=== PATIENT | female | born 1950 | race African-American/Black ===

== ENCOUNTER 2019-05-25 13:40 | Emergency (ER) | payer MEDICARE ==
[~2019-05-25] VITALS: Ht 165.1 cm; Wt 79.4 kg
--- NOTE | 2019-05-25 14:00 | NUR ---
PT BIB FAMILY TO ER BED 10 C/O DIFFUSE ABDOMINAL PAIN W/ NAUSEA SINCE YESTERDAY. PT IS DIALYSIS PATIENT. LAST DIALYSIS YESTERDAY. PT DENIES VOMITING. PLACED ON MONITOR. AWAITING MD MAGAÑA.
--- NOTE | 2019-05-25 14:16 | NUR ---
DR ALCALA AT BEDSIDE FOR EVAL.
[2019-05-25] MEDS ORDERED: ONDANSETRON HCL/PF 4 MG/2 ML VIAL IVP ONE (14:30)
[2019-05-25] MEDS ORDERED: MORPHINE SULFATE INJ 2 MG/ML DISP.SYRIN IV ONE (14:30)
--- NOTE | 2019-05-25 14:35 | NUR ---
IV LINE STARTED BLOOD DRAWN AND SENT TO LAB.
[2019-05-25] MEDS ORDERED: ONDANSETRON HCL/PF 4 MG/2 ML VIAL ONE (14:38)
[2019-05-25] MEDS ORDERED: MORPHINE SULFATE INJ 4 MG/ML DISP.SYRIN ONE (14:38)
[2019-05-25 14:41] LABS: BASOPHILS % (AUTO) 0.5 % (0.0-2.0); EOSINOPHILS % (AUTO) 0.6 % (0.0-6.0); HEMATOCRIT 26 % (33-45); HEMOGLOBIN 8.3 g/dL (11.5-14.8); LYMPHOCYTES # (AUTO) 1.4 /CMM (0.8-4.8); LYMPHOCYTES % (AUTO) 13.8 % (20.0-44.0); MEAN CORPUSCULAR HGB CONC 32 g/dl (31.0-36.0); MEAN CORPUSCULAR VOLUME 96 fL (82-100); MONOCYTES % (AUTO) 9.7 % (2.0-12.0); NEUTROPHILS # (AUTO) 7.6 /CMM (1.8-8.9); NEUTROPHILS % (AUTO) 75.4 % (43.0-81.0); PLATELET COUNT (AUTO) 328 /CMM (150-450); RED BLOOD CELL COUNT(AUTO) 2.72 MIL/uL (4.0-5.2)
[2019-05-25 15:12] LABS: BILIRUBIN,DIRECT 0.3 mg/dL (0.0-0.2); BILIRUBIN,TOTAL 0.6 mg/dL (0.2-1.0); CALCIUM, SERUM 8.4 mg/dL (8.5-10.1); POTASSIUM 4.8 mmol/L (3.5-5.1); TOTAL PROTEIN, SERUM 7.6 g/dL (6.4-8.2)
[2019-05-25 15:13] LABS: CREATININE 8.2 mg/dL (0.6-1.3)
--- NOTE | 2019-05-25 17:01 | NUR ---
Patient discharged to home in stable condition. Written and verbal after care instructions given. Patient verbalizes understanding of instruction.IV removed. Catheter intact and site benign. Pressure and 4x4 applied to site. No bleeding noted.
[2019-05-25 17:02] VITALS: BP 148/58
== END 2019-05-25 17:03 | disposition home or self-care (01) ==
LOC: ER 13:41
DX: K59.00 Constipation, unspecified (principal); R10.13 Epigastric pain; I12.0 Hypertensive chronic kidney disease with stage 5 chronic kidney disease or end stage renal disease; N18.6 End stage renal disease; Z99.2 Dependence on renal dialysis; Z86.73 Personal history of transient ischemic attack (TIA), and cerebral infarction without residual deficits; Z60.2 Problems related to living alone
CPT/HCPCS: 36415; 71045; 74176; 80048; 80076; 83690; 85025; 96374; 96375; 99285; J2270; J2405

== ENCOUNTER 2019-05-27 21:19 | Inpatient (IN) | payer MEDICARE ==
[~2019-05-27] VITALS: Ht 160 cm; Wt 68.9 kg
--- NOTE | 2019-05-27 21:45 | NUR ---
unable to collect urine as pt reported she is not producing any more urine. md polanco aware
[2019-05-27] MEDS ORDERED: ONDANSETRON HCL/PF 4 MG/2 ML VIAL ONE ×2 (21:54→23:19)
[2019-05-27] MEDS ORDERED: MORPHINE SULFATE INJ 2 MG/ML DISP.SYRIN ONE (21:54)
--- NOTE | 2019-05-27 21:57 | NUR ---
PT W/ A SHUNT ON DANIELLE THAT HAS A DRESSING ON AND PER PT IT'S THE SITE THAT IS CURRENTLY USED FOR HD. ALSO W/ A PERNELL SHUNT THAT WAS STABLISHED 2 MOS AGO AND NOT USED YET. PT DENIED ANY HX OF DM. SPOKE TO DR HORNE . PER TO OK START AN IV LINE AND DRAW BLOOD ON THE FEET. A 20G PIV STARTED ON L FOOT . BLOOD DRAWN AND SENT TO THE LAB
[2019-05-27] MEDS ORDERED: ONDANSETRON HCL/PF 4 MG/2 ML VIAL IVP ONE (22:00)
[2019-05-27] MEDS ORDERED: MORPHINE SULFATE INJ 2 MG/ML DISP.SYRIN IV ONE (22:00)
[2019-05-27 22:02] LABS: BASOPHILS % (AUTO) 0.4 % (0.0-2.0); EOSINOPHILS % (AUTO) 5.5 % (0.0-6.0); HEMATOCRIT 24 % (33-45); HEMOGLOBIN 7.6 g/dL (11.5-14.8); LYMPHOCYTES # (AUTO) 0.6 /CMM (0.8-4.8); LYMPHOCYTES % (AUTO) 10.6 % (20.0-44.0); MEAN CORPUSCULAR HGB CONC 32 g/dl (31.0-36.0); MEAN CORPUSCULAR VOLUME 95 fL (82-100); MONOCYTES # (AUTO) 0.5 /CMM (0.1-1.30); NEUTROPHILS # (AUTO) 3.9 /CMM (1.8-8.9); NEUTROPHILS % (AUTO) 74.5 % (43.0-81.0); PLATELET COUNT (AUTO) 302 /CMM (150-450); RED BLOOD CELL COUNT(AUTO) 2.54 MIL/uL (4.0-5.2); WHITE BLOOD COUNT (AUTO) 5.2 K/uL (4.3-11.0)
--- NOTE | 2019-05-27 22:09 | NUR ---
dr. mancia at the bed side
--- NOTE | 2019-05-27 22:11 | NUR ---
pt left fo ct
[2019-05-27 22:13] LABS: ALBUMIN 1.8 g/dL (3.4-5.0); BILIRUBIN,DIRECT 0.4 mg/dL (0.0-0.2); BILIRUBIN,TOTAL 0.7 mg/dL (0.2-1.0); POTASSIUM 4.6 mmol/L (3.5-5.1); TOTAL PROTEIN, SERUM 7.3 g/dL (6.4-8.2)
--- NOTE | 2019-05-27 22:42 | NUR ---
harper, the niece, does not have the list of home meds at this time. she will provide us w/ the list later
[2019-05-27] MEDS ORDERED: ONDANSETRON HCL/PF - ER 4 MG/2 ML VIAL IV ONE (23:30)
[2019-05-28] VITALS (7 sets, daily range): BP systolic 101–156; BP diastolic 43–69
[2019-05-28] MEDS ORDERED: HYDROCODONE/APAP 5/325MG 1 EACH TABLET PO PRN
[2019-05-28] MEDS ORDERED: MAGNESIUM HYDROXIDE 30 ML UDC PO PRN
[2019-05-28] MEDS ORDERED: ZOLPIDEM TARTRATE 5 MG TABLET PO PRN
[2019-05-28] MEDS ORDERED: MAG HYDROX/AL HYDROX/SIMETH 30 ML UDC PO PRN
--- NOTE | 2019-05-28 00:05 | NUR ---
NG TUBE WAS INSERTED AT THE BED SIDE W/ GASTRIC JUICE RETURN. PLACEMENT CONFIRMED W/ RNs. PT TOLERATED THE PROCEDURE WELL.
--- NOTE | 2019-05-28 00:09 | NUR ---
dr. Jenkins hospitalist at the bed side
--- NOTE | 2019-05-28 00:21 | NUR ---
x. ray at the bed side
[2019-05-28] MEDS ORDERED: METOCLOPRAMIDE HCL 15 MG in IV NS 0.9% 50 ML IV PRN (00:30)
--- NOTE | 2019-05-28 00:33 | NUR ---
REPORT GIVEN TO PATY ON THIRD FLOOR
--- NOTE | 2019-05-28 01:05 | NUR ---
MS RN NOTES RECEIVED PATIENT ON FLOOR AT 0105. PATIENT IS ASLEEP, EASILY AWAKEN. WITH NIECE AT BEDSIDE. ALERT AND ORIENTED X 2-3. BREATHING EVEN AND UNLABORED ON 2L NC. SHOWS NO SIGNS OF ACUTE RESPIRATORY DISTRESS, NO ACUTE PAIN. IV ON L FOOT 20G IS CLEAN DRY AND INTACT. SHOWS NO SIGNS OF INFILTRATION, NO REDNESS. HD CATH ON L UPPER ARM SHUNT, AND NEW R UPPER ARM SHUNT THAT HAS NOT BEEN USED. SKIN ASSESSMENT COMPLETED AND BELONGINGS CHECKLIST COMPLETED. ORIENTED TO STAFF AND ROOM. SAFETY PRECAUTIONS IN PLACE. BED IN LOWEST POSITION, LOCKED, AND CALL LIGHT KEPT WITHIN REACH. WILL CONTINUE TO MONITOR.
[2019-05-28 04:55] LABS: BASOPHILS % (AUTO) 0.6 % (0.0-2.0); EOSINOPHILS % (AUTO) 4.4 % (0.0-6.0); HEMATOCRIT 23 % (33-45); HEMOGLOBIN 7.3 g/dL (11.5-14.8); LYMPHOCYTES # (AUTO) 0.6 /CMM (0.8-4.8); LYMPHOCYTES % (AUTO) 13.1 % (20.0-44.0); MEAN CORPUSCULAR HGB CONC 32 g/dl (31.0-36.0); MEAN CORPUSCULAR VOLUME 95 fL (82-100); MONOCYTES # (AUTO) 0.6 /CMM (0.1-1.30); MONOCYTES % (AUTO) 12.1 % (2.0-12.0); NEUTROPHILS # (AUTO) 3.5 /CMM (1.8-8.9); NEUTROPHILS % (AUTO) 69.8 % (43.0-81.0); PLATELET COUNT (AUTO) 297 /CMM (150-450); RED BLOOD CELL COUNT(AUTO) 2.43 MIL/uL (4.0-5.2)
[2019-05-28 05:12] LABS: CALCIUM, SERUM 7.6 mg/dL (8.5-10.1); MAGNESIUM 2.1 mg/dL (1.8-2.4); PHOSPHORUS 4.2 mg/dL (2.5-4.9); POTASSIUM 4.5 mmol/L (3.5-5.1)
[2019-05-28 05:16] LABS: CREATININE 8.5 mg/dL (0.6-1.3)
[2019-05-28 05:21] LABS: THYROID STIMULATING HORMONE 9.356 uIU/mL (0.358-3.74)
[2019-05-28] MEDS ORDERED: NS 0.9% IV PRN (06:30)
[2019-05-28] MEDS ORDERED: METOCLOPRAMIDE HCL IV PRN (06:30)
--- NOTE | 2019-05-28 06:37 | NUR ---
MS RN NOTES PATIENT IS ASLEEP, EASILY AWAKEN. WITH NIECE AT BEDSIDE. ALERT AND ORIENTED X 2-3. BREATHING EVEN AND UNLABORED ON 2L NC. SHOWS NO SIGNS OF ACUTE RESPIRATORY DISTRESS, NO ACUTE PAIN. IV ON L FOOT 20G IS CLEAN DRY AND INTACT. SHOWS NO SIGNS OF INFILTRATION, NO REDNESS. HD CATH ON L UPPER ARM SHUNT, AND NEW R UPPER ARM SHUNT THAT HAS NOT BEEN USED. NG TUBE IN RIGHT NARES ON LOW INTERMITTENT SUCTIONS, DRAINING GREEN FLUIDS, 500MLL DRAINED. ALL DUE MEDICATIONS GIVEN. SAFETY PRECAUTIONS IN PLACE. BED IN LOWEST POSITION, LOCKED, AND CALL LIGHT KEPT WITHIN REACH. WILL ENDORSE TO ONCOMING NURSE.
--- NOTE | 2019-05-28 07:30 | NUR ---
MS/RN Opening note Patient received in bed, AO x 2-3, no appears pain or discomfort. Respiration and unlabored with N/C at 2LPM. Skin is warm to touch, keep clean/dry, intact IV site in right foot. Kept lower position of bed with elevated HOB and bed alarm on for safety. Call light within reach, all needs met. Will endorse heel shaver.
[2019-05-28] MEDS ORDERED: METOCLOPRAMIDE HCL 10 MG/2 ML VIAL IV PRN (08:30)
[2019-05-28] MEDS: PANTOPRAZOLE 40 MG VIAL IV SCH (09:44)
[2019-05-28] MEDS ORDERED: IV NS 0.9% 1,000 ML IV PRN (13:00)
[2019-05-28] MEDS ORDERED: MINERAL OIL 133 ML (PYXIS) 1 EA ENEMA RC ONE (13:00)
[2019-05-28] MEDS: MORPHINE SULFATE INJ 2 MG/ML DISP.SYRIN IV PRN ×2 (14:19→21:42)
--- NOTE | 2019-05-28 18:30 | NUR ---
MS/RN Closing note Patient in bed comfortably, staring hemodialysis, no appears pain or discomfort. Respiration and unlabored, no sob or distress observed. Skin is warm to touch, keep clean/dry, intact new IV site. Kept lower position, patient refused elevate of HOB. Kept NG tube on for N/V, 500 cc out- put. Call light within reach, all needs met. Will endorse machinist 2nd shift.
--- NOTE | 2019-05-28 19:15 | NUR ---
PODIATRIC FOOT AND ANKLE SPECIALIST RCD PT S/P ARREST. PT IS AWAKE DOES NOT FOLLOW COMMANDS. ST ON MONITOR. INTUBATED 7.5 @ 23 W/VENT SETTINGS AC 14 450 40% +5. R NARE NG TUBE CLAMPED PER DAY SHIFT NO OUTPUT NOTED. HD IN PROGRESS.
--- NOTE | 2019-05-28 19:45 | NUR ---
MS RN OPENING NOTES RECEIVED PATIENT FROM MORNING SHIFT, ALERT AND ORIENTED X 2-3. FAMILY ON BEDSIDE. ON-GOING DIALYSIS. VERBALLY RESPONSIVE AND ABLE TO FOLLOW DIRECTIONS. BREATHING REGULAR AND UNLABORED ON OXYGEN AT 4L/MIN VIA NASAL CANNULA. LEFT FOOT G20 IV LINE INTACT AND PATENT, INFUSING WELL WITH NO BLEEDING OR S/S OF INFILTRATION NOTED. NG TUBE PATENT CONNECTED TO CONTINUOS SUCTION WITH MODERATE BLACKISH OUTPUT. COMPLAINED OF 3/10 GENERALIZED PAIN, NON-PHARMACOLOGICAL INTERVENTIONS PROVIDED. BED LOW AND LOCKED ON SEMI FOWLERS POSITION. CALL LIGHT IN REACH. WILL CONTINUE TO MONITOR.
--- NOTE | 2019-05-28 21:45 | NUR ---
MS RN NOTES S/P HEMODIALYSIS WITH NO OUTPUT. BP 150/69 HR 96 RR 20 Temp 98. WILL CONTINUE TO MONITOR.
--- NOTE | 2019-05-28 22:00 | NUR ---
MS RN NOTES COMPLAINED OF 8/10 ABDOMINAL PAIN, MORPHINE 4MG GIVEN VIA IV PUSH. NON-PHARMACOLOGICAL INTERVENTIONS PROVIDED. VITAL SIGNS WNL. WILL CONTINUE TO MONITOR.
[2019-05-29] MEDS: IV D5/ 0.9% NACL 1,000 ML IV PRN ×2 (03:39→19:37)
[2019-05-29 06:18] LABS: BASOPHILS % (AUTO) 0.5 % (0.0-2.0); EOSINOPHILS % (AUTO) 3.6 % (0.0-6.0); HEMATOCRIT 26 % (33-45); HEMOGLOBIN 8.3 g/dL (11.5-14.8); LYMPHOCYTES # (AUTO) 1.1 /CMM (0.8-4.8); LYMPHOCYTES % (AUTO) 16.2 % (20.0-44.0); MEAN CORPUSCULAR HGB CONC 32 g/dl (31.0-36.0); MEAN CORPUSCULAR VOLUME 95 fL (82-100); MONOCYTES % (AUTO) 14.3 % (2.0-12.0); NEUTROPHILS # (AUTO) 4.6 /CMM (1.8-8.9); NEUTROPHILS % (AUTO) 65.4 % (43.0-81.0); PLATELET COUNT (AUTO) 339 /CMM (150-450); RED BLOOD CELL COUNT(AUTO) 2.75 MIL/uL (4.0-5.2)
--- NOTE | 2019-05-29 06:30 | NUR ---
MS RN CLOSING NOTES PATIENT IN BED ALERT AND ORIENTED X 2-3. FAMILY ON BEDSIDE. VERBALLY RESPONSIVE AND ABLE TO FOLLOW DIRECTIONS. BREATHING REGULAR AND UNLABORED ON OXYGEN AT 4L/MIN VIA NASAL CANNULA. LEFT FOOT G20 IV LINE PATENT AND INFUSING WELL. NG TUBE PATENT CONNECTED TO CONTINUOS SUCTION WITH 80CC OUTPUT. NO BLEEDING NOTED LEFT ARM AV FISTULA. NO COMPLAINTS OF PAIN/DISCOMFORT REPORTED AT THIS TIME. BED LOW AND LOCKED ON SEMI FOWLERS POSITION. CALL LIGHT IN REACH. WILL ENDORSE TO MORNING SHIFT FOR DANNA.
[2019-05-29 06:33] LABS: CALCIUM, SERUM 8.8 mg/dL (8.5-10.1); CREATININE 6.3 mg/dL (0.6-1.3); MAGNESIUM 2.3 mg/dL (1.8-2.4); PHOSPHORUS 3.4 mg/dL (2.5-4.9); POTASSIUM 4.3 mmol/L (3.5-5.1)
--- NOTE | 2019-05-29 07:20 | NUR ---
RN OPENING NOTES RECEIVED PATIENT IN BED RESTING. NOT IN ANY FORM OF DISTRESS, NO SOB. DENIED PAIN OR DISCOMFORT AT THIS TIME. IV ACCESS INTACT AND PATENT. NG TUBE ON RIGHT NARES IN PLACE, ON INTERMITTENT SUCTION. KEPT PATIENT SAFE AND COMFORTABLE, BED IN LOW/LOCKED POSITION, SIDERAILS UP X 2, CALL LIGHT IN REACH. WILL CONT TO MONITOR ACCORDINGLY.
[2019-05-29 08:00] VITALS: BP 143/68
[2019-05-29] MEDS: MORPHINE SULFATE INJ 2 MG/ML DISP.SYRIN IV PRN ×2 (08:38→23:17)
[2019-05-29] MEDS: PANTOPRAZOLE 40 MG VIAL IV SCH (08:38)
[2019-05-29] MEDS ORDERED: DIATR MEGLU/DIATRIZOATE SODIUM 120 ML BOTTLE (GASTROGRAPHIN) ONE (09:21)
[2019-05-29] MEDS ORDERED: NA PHOS,M-B/NA PHOS,DI-BA 1 EA ENEMA RC PRN (10:30)
[2019-05-29] MEDS ORDERED: CLON0.5T4 PO (14:18)
[2019-05-29] MEDS ORDERED: ERGO50CA PO (14:18)
[2019-05-29] MEDS ORDERED: FOLI0.8T2 PO (14:18)
[2019-05-29] MEDS ORDERED: CINA30TA2 PO (14:18)
[2019-05-29] MEDS ORDERED: DOCU-141 PO (14:18)
[2019-05-29] MEDS ORDERED: CLON0.1T PO (14:18)
[2019-05-29] MEDS ORDERED: ISOS10TA8 PO (14:18)
[2019-05-29] MEDS ORDERED: OXYC5TAB3 PO (14:18)
[2019-05-29] MEDS ORDERED: HYDR-3972 PO (14:18)
[2019-05-29 16:00] VITALS: BP 117/69
--- NOTE | 2019-05-29 19:00 | NUR ---
MS RN NOTE RECEIVED PT IN STABLE CONDITION A/O X2-3 NOTED WITH FAMILY AND DIALYSIS NURSE AT BEDSIDE. NO SIGNS OF SOB OR DISTRESS. NO INDICATION OF PAIN OR N/V. NG TUBE IN PLACE, RECEIVING SMALL BOWEL THROUGH, WILL RESUME INTERMITTENT SUCTIONING IN AM. IV IN L FOOT #[address] WITH IVF INFUSING. ALL CURRENT NEEDS ATTENDED TO. BED LOW, LOCKED, UPPER RAILS UP, AND CALL LIGHT WITHIN REACH. WILL CONT. TO MONITOR.
--- NOTE | 2019-05-29 19:00 | NUR ---
RN CLOSING NOTES PATIENT IN STABLE CONDITION. ALL NEEDS ATTENDED AND PROVIDED. ALL DUE MEDS GIVEN ORDERED. TURNED AND REPOSITIONED PATIENT. KEPT PATIENT SAFE AND COMFORTABLE. BED IN LOW/LOCKED POSITION. SIDERAILS UPX2, CALL LIGHT IN REACH. ENDORSED ACCORDINGLY.
[2019-05-29 20:00] VITALS: BP 143/89
[2019-05-29] MEDS: MUPIROCIN OINT 2% 22 GM TUBE SCH (21:32)
[2019-05-30] VITALS (22 sets, daily range): BP systolic 65–238; BP diastolic 38–118
--- NOTE | 2019-05-30 06:15 | NUR ---
MS RN NOTE LAST XRAY DONE FOR SMALL BOWEL FOLLOW THROUGH. PER RADIOLOGY, PHOTO IS CLEAR AND MAY RESTART LOW INTERMITTENT SUCTIONING. PT STARTED ON LOW INTERMITTENT SUCTIONING, TOLERATING WELL.
--- NOTE | 2019-05-30 07:30 | NUR ---
MS RN OPENING NOTE PATIENT IN BED RESTING COMFORTABLY. PATIENT IN NO ACUTE DISTRESS. NO SOB NOTED. PATIENT BREATHING IS EVEN AND UNLABORED. NG TUBE PATENT AND IN PLACE, WITH INTERMITTENT SUCTION. PATIENT SAFETY PRECAUTIONS IN PLACE. BED ALARM IS ON. PATIENT BED IS LOCKED AND IN LOWEST POSITION. CALL LIGHT WITHIN REACH. WILL CONTINUE TO MONITOR. Addendum: 05/30/19 at 1139 by ANA COURTNEY RN MS RN OPENING NOTE PATIENT IN BED RESTING COMFORTABLY. PATIENT IN NO ACUTE DISTRESS. NO SOB NOTED. PATIENT BREATHING IS EVEN AND UNLABORED. PATIENT BREATHING ON OXYGEN NC AT 4L. NG TUBE PATENT AND IN PLACE, WITH INTERMITTENT SUCTION. PATIENT SAFETY PRECAUTIONS IN PLACE. BED ALARM IS ON. PATIENT BED IS LOCKED AND IN LOWEST POSITION. CALL LIGHT WITHIN REACH. WILL CONTINUE TO MONITOR.
[2019-05-30 07:39] LABS: BASOPHILS % (AUTO) 0.6 % (0.0-2.0); EOSINOPHILS % (AUTO) 2.8 % (0.0-6.0); HEMATOCRIT 26 % (33-45); HEMOGLOBIN 7.9 g/dL (11.5-14.8); LYMPHOCYTES # (AUTO) 0.6 /CMM (0.8-4.8); LYMPHOCYTES % (AUTO) 11.1 % (20.0-44.0); MEAN CORPUSCULAR HGB CONC 30 g/dl (31.0-36.0); MEAN CORPUSCULAR VOLUME 97 fL (82-100); MONOCYTES # (AUTO) 0.7 /CMM (0.1-1.30); MONOCYTES % (AUTO) 13.7 % (2.0-12.0); NEUTROPHILS # (AUTO) 3.8 /CMM (1.8-8.9); NEUTROPHILS % (AUTO) 71.8 % (43.0-81.0); PLATELET COUNT (AUTO) 302 /CMM (150-450); RED BLOOD CELL COUNT(AUTO) 2.71 MIL/uL (4.0-5.2); WHITE BLOOD COUNT (AUTO) 5.2 K/uL (4.3-11.0)
[2019-05-30 08:23] LABS: CALCIUM, SERUM 8.7 mg/dL (8.5-10.1); CREATININE 5.5 mg/dL (0.6-1.3); MAGNESIUM 2.4 mg/dL (1.8-2.4); POTASSIUM 4.3 mmol/L (3.5-5.1)
[2019-05-30 08:25] LABS: PHOSPHORUS 3.9 mg/dL (2.5-4.9)
--- NOTE | 2019-05-30 08:25 | NUR ---
MS RN NOTE PATIENT COMES FROM HOME.PATIENT IS ALERT AND ORIENTED X3 TO PLACE AND PERSON. CHIEF COMPLAIN WAS N/V AND CONSTIPATION. DIAGONOSIS IS SMALL BOWEL OBSTRUCTION. WITH HISTORY OF ESRD, HD, CVA, HTN, AND DM. 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 PATIENT HAS BEEN NPO STATUS SINCE ADMISSION. PATIENT WITH NG TUBE PLACEMENT INTACT AND SWISH PRESENT UPON AUSCULTATION BY PRINCIPAL DATABASE DEVELOPER AND DAY SHIFT NURSES. NG TUBE INTERMITTENT SUCTIONING PAUSED BEFORE SMALL BOWEL THROUGH FOLLOW UP. PATIENT UNDER WENT SMALL BOWEL FOLLOW THROUGH LAST NIGHT WITH LAST IMAGE TAKEN AT 0600. AFTER SMALL BOWEL THROUGH COMPLETE, PATIENT BACK ON NG TUBE LOW TO INTERMITTENT SUCTION AND TOLERATED WELL.PATIENT WAS VERBALLY RESPONSIVE DURING RN SHIFT REPORT.VITAL SIGNS STABLE AT 0735. PATIENT BREATHING WAS EVEN AND UNLABORED AND PATIENT WAS RESPONSIVE TO VERBAL RESPONSE AND TOUCH. PATIENT IN NO ACUTE DISTRESS AT 0740, NO SOB NOTED. PATIENT BREATHING WAS EVEN AND UNLABORED. FAMILY STATED CARD LACER MOVED HER ARM FROM BEING OFFLOADED ON PILLOWS AND EXPERIENCING SOME PAIN AND PATIENT HAD EXPERIENCED ABDOMINAL PAIN. NOTED THROUGHOUT HOSPITALIZATION OF ABDOMINAL PAIN WELL. WHEN CHECKING HER MEDICATION RECONCILATION AND WHAT PAIN MEDS WERE GIVE, IT WAS AT 0755 PATIENT FAMILY STATED PATIENT WITH LABORED BREATHING. PATIENT BECAME UNRESPONSIVE WITH SPO2 IN 50-55% RANGE. HR WAS 52. RAPID RESPONSE WAS INITIATED. CPR INITIATED AT 0808, CODE BLUE CALLED AT THIS TIME. PATIENT GIVEN EPI [id number]. PULSE CAME BACK AT 0813. PATIENT INTUBATED 0816. PATIENT THEN TRANSFERRED TO ICU FOR FURTHER CARE AT 0825.
--- NOTE | 2019-05-30 08:30 | NUR ---
RT NOTE Responded to RR which turned into Code Blue. Pt was unresponsive, ACLS protocol stated and patient orally intubated w 7.5 Ett @ 23cm @ lipline. Pt then transferred to ICU.
--- NOTE | 2019-05-30 08:40 | NUR ---
PHYSICAL THERAPY INSTRUCTOR NOTES TRANSFERRED PT S/P CODE BLUE AT MS , PT INTUBATED 7.08/[address] ON MECHANICAL VENT WITH INITIAL SETTINGS OF RATE 14 TV 450 FIO2 100 PEEP OF 92% , NON RESPONSIVE , PULSES ARE PALPABLE , ST 120 ON BEDSIDE MONITOR , IV OF L FOOT # 20 WITH D5NS @ 75ML/HR INFUSING WELL , RIGHT NGT IN PLACE ATTACHED TO LOW INTERMITTENT SUCTION DRAINING WITG GREENISH OUTPUT , DEMITRY AT BEDSIDE , ORDERED CBC , BMP , MAG , PHOS , CENTRAL LINE INSERTION , AND DIPRIVAN INFUSION , ORDERS CARRIED OUT , PENDING CHEST XRAY RESULT FOR ETT PLACEMENT
--- NOTE | 2019-05-30 08:45 | NUR ---
MICA BUILDER NOTES SEEN AND EVALUATED BY DR MERRITT , DISCUSSED EVENTS S/P CODE BLUE , INTUBATED ON VENT SETTINGS OF AC 14 TV 450 FIO2 100% AND PEEP OF 5 , SPO2 OF 92% ,PENDING CHEST XRAY RESULT , MD AWARE , PER MD DO ABG AFTER TWO HOURS
[2019-05-30 08:48] LABS: ABG BASE EXCESS -2.4 mmol/L; ABG OXYGEN SATURATION 99.2 % (92.0-98.5); ABG PO2 422.4 mmHg (75.0-100.0); AaDO2 240.6 mmHg; COHb 1.1 % (0.5-1.5); MetHb 0.5 % (0.0-1.5); O2Hb 97.6 % (94.0-97.0); PEEP,BG 5 cm H2O; SITE, ABG Right Radial; VT, ABG 450 mL
[2019-05-30] MEDS: MUPIROCIN OINT 2% 22 GM TUBE SCH ×2 (09:00→22:08)
--- NOTE | 2019-05-30 09:00 | NUR ---
RESTAURANT GREETER NOTES SEEN AND EVALUATED BY DR HEAD DISCUSSED LATEST LABS S/P CODE BLUE , DISCUSSED EVENS , INTUBATED ON MECHANICAL VENT , NO SEDATION , VS STABLE , TEMP OF 99.9 , MD AWARE , PER MD MONITOR LABS TOMORROW
[2019-05-30 09:26] LABS: BASOPHILS % (AUTO) 0.6 % (0.0-2.0); EOSINOPHILS % (AUTO) 2.3 % (0.0-6.0); HEMATOCRIT 26 % (33-45); HEMOGLOBIN 7.7 g/dL (11.5-14.8); LYMPHOCYTES # (AUTO) 0.9 /CMM (0.8-4.8); LYMPHOCYTES % (AUTO) 17.6 % (20.0-44.0); MEAN CORPUSCULAR HGB CONC 30 g/dl (31.0-36.0); MEAN CORPUSCULAR VOLUME 99 fL (82-100); MONOCYTES # (AUTO) 0.6 /CMM (0.1-1.30); MONOCYTES % (AUTO) 13.1 % (2.0-12.0); NEUTROPHILS # (AUTO) 3.3 /CMM (1.8-8.9); NEUTROPHILS % (AUTO) 66.4 % (43.0-81.0); PLATELET COUNT (AUTO) 293 /CMM (150-450); RED BLOOD CELL COUNT(AUTO) 2.59 MIL/uL (4.0-5.2); WHITE BLOOD COUNT (AUTO) 4.9 K/uL (4.3-11.0)
--- NOTE | 2019-05-30 09:36 | NUR ---
RT VT INCREASED TO 500 PER MD ORDER. ABG 2 HOURS AFTER VENT CHANGES. MEHREEN WADE NOTIFIED AND AWARE OF CHANGES. Addendum: 05/30/19 at 1841 by LIDA GALAVIZ RT Amended: Links added.
[2019-05-30 09:37] LABS: CALCIUM, SERUM 8.5 mg/dL (8.5-10.1); CREATININE 5.8 mg/dL (0.6-1.3); MAGNESIUM 2.2 mg/dL (1.8-2.4); PHOSPHORUS 4.5 mg/dL (2.5-4.9); POTASSIUM 4.2 mmol/L (3.5-5.1)
[2019-05-30] MEDS: PANTOPRAZOLE 40 MG VIAL IV SCH (10:25)
[2019-05-30] MEDS ORDERED: PIPERACILLIN /TAZOBACTAM 3.375 G in IV D5W 50 ML IV SCH (10:30)
--- NOTE | 2019-05-30 10:50 | NUR ---
WOUND CARE: PT NOT SEEN YET FOR SKIN ASSESSMENT DUE TO PT NOT STABLE (CODE BLUE THIS AM). WILL SEE PT PT CONDITION PERMITS.
[2019-05-30] MEDS ORDERED: ZOSYN IVPB 2.25 G in IV D5W 50ml IV SCH (10:57)
[2019-05-30] MEDS ORDERED: CLINDAMYCIN 600 MG in IV D5W 50 ML IV SCH (11:11)
[2019-05-30] MEDS: PROPOFOL 100 ML IV PRN ×2 (11:28→19:03)
[2019-05-30] MEDS: IV D5/ 0.9% NACL 1,000 ML IV PRN (11:49)
--- NOTE | 2019-05-30 12:00 | NUR ---
WEB SERVICES PROFESSIONAL NOTES MAREK VISUAL SPECIALIST AT BEDSIDE , DISCUSSED EVENTS S/P CODE BLUE , PT INTUBATED , SEDATED , ON LOW INTERMITTENT SUCTION DRAINING WITH MINIMAL GREENISH SECRETIONS , DISCUSSED RESULTS OF SMALL BOWEL FOLLOW THRU , PER VISUAL SPECIALIST CONTINUE NGT TO LOW ICS , IF NO BM GIVE ENEMA , WILL CONTINUE TO MONITOR
[2019-05-30 12:36] LABS: ABG BASE EXCESS 2.6 mmol/L; ABG OXYGEN SATURATION 99.1 % (92.0-98.5); ABG PCO2 38.2 mmHg (35.0-45.0); ABG PO2 383.4 mmHg (75.0-100.0); AaDO2 146.9 mmHg; COHb 1.3 % (0.5-1.5); MetHb 0.5 % (0.0-1.5); O2Hb 97.3 % (94.0-97.0); PEEP,BG 5 cm H2O; SITE, ABG Right Femoral; VT, ABG 500 mL
--- NOTE | 2019-05-30 12:41 | NUR ---
PITTING MACHINE OPERATOR NOTES ABG RELAYED TO DR MERRITT , DISCUSSED RESULT AND VENT SETTINGS, FIO2 TITRATED TO 40% , WILL CONTINUE TO MONITOR
--- NOTE | 2019-05-30 13:59 | NUR ---
WOMEN DESIGNER NOTES RECEIVED A CALL FROM MAREK HADDAD , ORDERS ABDOMINAL KUV , DISCUSSED WAS KUV WAS DONE TODAY FOR LINE PLACEMENT , PENDING RESULT WORKPLACE TRAINER AND ASSESSOR AWARE
[2019-05-30] MEDS: hydrALAZINE HCL IV 20 MG VIAL IV PRN (14:40)
--- NOTE | 2019-05-30 14:45 | NUR ---
HOT BOX SPOTTER NOTES RELAYED ABDOMINAL KUV RESULT TO MAREK HADDAD , OUTPATIENT PROGRAM COORDINATOR AWARE , NO NEW ORDERS RECEIVED
--- NOTE | 2019-05-30 15:00 | NUR ---
BRAND MANAGER NOTES TRANSFERRED PT VIA ACLS PROTOCOL TO RADIOLOGY DEPT FOR STAT HEAD CT , PT STABLE , NO DISTRESS NOTED , WILL CONTINUE TO MONITOR
[2019-05-30] MEDS: MEROPENEM 500 MG in IV NS 0.9% 50 ML IV SCH (16:25)
--- NOTE | 2019-05-30 16:43 | NUR ---
FIELD AUTOMOBILE ADJUSTER NOTES PT NOTED WITH SMEAR STOOL UPON CLEANING , SOFT BROWN STOOL MINIMAL IN AMOUNT
[2019-05-30] MEDS: LINEZOLID RTU BAG 600 MG in PREMIX 1 EA IV SCH (17:03)
--- NOTE | 2019-05-30 19:14 | NUR ---
SPEED OPERATOR NOTES PATIENT STABLE , SEDATED , RESPONSIVE TO PAIN STIMULI , INTUBATED 7.08/[address] ON MECHANICAL VENT SETTINGS OF RATE 14 TV 500 FIO2 40 PEEP 5 OF 95% , , ST 105 ON BEDSIDE MONITOR , RIGHT FEMORAL PICC LINE WITH D5NS @ 75ML/HR , DIPRIVAN @ 30MCG/KG/MIN INFUSING WELL , RIGHT NGT IN PLACE ATTACHED TO LOW INTERMITTENT SUCTION DRAINING WITG GREENISH OUTPUT , REPORT GIVEN TO SHANE FOR CONTINUITY OF CARE
--- NOTE | 2019-05-30 19:30 | NUR ---
ACADEMIC HOSPITALIST NOTES, PATIENT IN BED SEDATED, OPEN SPONTANEOUSLY SEMI OPEN AT TIMES, PT INTUBATED 7.08/24 ON MECHANICAL VENT WITH INITIAL SETTINGS OF RATE 14 TV 500 FIO2 40%, PEEP 5 , RIGHT FEMORAL PICC LINE AND D5NS @ 75ML/HR INFUSING WELL, AND DIPRIVAN AT 30MCG AT THIS TIME, RIGHT NGT IN PLACE ATTACHED TO LOW INTERMITTENT SUCTION DRAINING, GREENISH DRAINAGE NOTED WITH MINIMAL AMOUNT AT THIS TIME, WILL CONTINUE TO MONITOR CLOSELY.
--- NOTE | 2019-05-30 19:31 | NUR ---
FACILITY SECURITY OFFICER NOTES FAXED REQUEST FOR MEDICAL RECORD @ [facility] [phone] ,
--- NOTE | 2019-05-30 21:49 | NUR ---
RT NOTE PT RECEIVED INTUBATED WITH ET TUBE SZ 7.5 @ 23 CM RIGHT LIP LINE. CUFF CHECKED VIA TOUCH UP WORKER. ET TUBE SECURED VIA ANCHOR FAST. AMBU BAG @ BEDSIDE. SX DONE, SMALL SECRETIONS NOTED. ALARMS ON AND AUDIBLE. NO DISTRESS NOTED AT THIS TIME. WILL MONITOR T/O SHIFT. Addendum: 05/30/19 at 2150 by OTILIO BLAKE RT Amended: Links added.
[2019-05-30] MEDS ORDERED: ACETAMINOPHEN 650 MG/SUPP.RECT RC PRN (22:00)
--- NOTE | 2019-05-30 22:10 | NUR ---
RN NOTES, PATIENT NOTED WITH TEMP 100.4, CALLED MD SPORTS REPORTER ANDONIAN AND NEW ORDER FOR TYLENOL SUPPOSITORY, ORDER NOTED AND CARRIED OUT.
[2019-05-31] VITALS (39 sets, daily range): BP systolic 109–184; BP diastolic 49–93
[2019-05-31] MEDS: PROPOFOL 100 ML IV PRN (04:01)
[2019-05-31 04:40] LABS: BASOPHILS % (AUTO) 0.5 % (0.0-2.0); EOSINOPHILS % (AUTO) 1.1 % (0.0-6.0); HEMATOCRIT 22 % (33-45); LYMPHOCYTES # (AUTO) 0.5 /CMM (0.8-4.8); LYMPHOCYTES % (AUTO) 9.3 % (20.0-44.0); MEAN CORPUSCULAR HGB CONC 31 g/dl (31.0-36.0); MEAN CORPUSCULAR VOLUME 98 fL (82-100); MONOCYTES # (AUTO) 0.9 /CMM (0.1-1.30); MONOCYTES % (AUTO) 16.3 % (2.0-12.0); NEUTROPHILS # (AUTO) 4.3 /CMM (1.8-8.9); NEUTROPHILS % (AUTO) 72.8 % (43.0-81.0); PLATELET COUNT (AUTO) 251 /CMM (150-450); RED BLOOD CELL COUNT(AUTO) 2.25 MIL/uL (4.0-5.2); WHITE BLOOD COUNT (AUTO) 5.8 K/uL (4.3-11.0)
[2019-05-31 05:02] LABS: CALCIUM, SERUM 7.4 mg/dL (8.5-10.1); CREATININE 6.5 mg/dL (0.6-1.3); MAGNESIUM 2.3 mg/dL (1.8-2.4); PHOSPHORUS 4.1 mg/dL (2.5-4.9); POTASSIUM 4.3 mmol/L (3.5-5.1)
[2019-05-31 05:10] LABS: HEMOGLOBIN 6.7 g/dL (11.5-14.8)
[2019-05-31] MEDS: LINEZOLID RTU BAG 600 MG in PREMIX 1 EA IV SCH ×2 (05:26→16:14)
[2019-05-31] MEDS: IV D5/ 0.9% NACL 1,000 ML IV PRN (05:32)
[2019-05-31 06:35] LABS: LYMPHOCYTES % (MANUAL) 9 % (16-48); MONOCYTES % (MANUAL) 11 % (0-11.0); NEUTROPHILS % (MANUAL) 82 (42-76)
--- NOTE | 2019-05-31 07:00 | NUR ---
LEGAL RECRUITER NOTES, PATIENT CONTINUE ON MECHANICAL VENT WITH SAME SETTINGS OF RATE 14 TV 500 FIO2 40%, PEEP 5 , NO DISTRESS NOTED OVER NIGHT, SINUS TACHY MOSTLY IN TELE MONITOR, RIGHT FEMORAL PICC LINE AND D5NS @ 75ML/HR INFUSING WELL, AND DIPRIVAN AT 30MCG AT THIS TIME, RIGHT NGT IN PLACE ATTACHED TO LOW INTERMITTENT SUCTION DRAINING, MINIMAL OUTPUT LAST DURING NIGHT, ONE VERY SMALL BOWEL MOVEMENT, NO SIGNIFICANT CHANGE IN CONDITION DURING THE NIGHT, THIS MORNING REPORTED BY LAB LOW H&H AND INFORMED ANDONIAN LOGISTICS MANAGEMENT SPECIALIST, HE REPLIED WITH ORDER FOR ONE UNIT PRBC AND REPEAT H&H AT 0700 THIS MORNING BEFORE THE TRANSFUSION IF HEMOGLOBIN <7 TRANSFUSE ENDORSED TO SHERI ROSADO FOR CONTINUATION OF CARE.
--- NOTE | 2019-05-31 07:00 | NUR ---
RN NOTES RECEIVED PT ON BED , SEDATED, AND INTUBATED ,ON DIPRIVAN AT 30MCG/KG/MIN, 7.08/24 ON MECHANICAL VENT WITH INITIAL SETTINGS OF RATE 14 TV 500 FIO2 40%, PEEP 5, VSS STABLE, DOSE NOT FOLLOW COMMAND, , RIGHT FEMORAL PICC LINE WITH D5NS @ 75ML/HR INFUSING WELL, RIGHT NGT IN PLACE ATTACHED TO LOW INTERMITTENT SUCTION DRAINING, WITH MINIMAL AMOUNT OF DRAINING THIS TIME, WILL CONTINUE TO MONITOR CLOSELY AND NOTIFED DM FOR ANY SIGNIFICANT CHANGES.
--- NOTE | 2019-05-31 07:20 | NUR ---
WOUND CARE CONSULT PATIENT SEEN AND SKIN ASSESSMENT DONE. PLEASE SEE PEN TENDER ASSESSMENT IN PCS FOR TODAY. PATIENT WITH ABDIRIZAK AT 11, 1ST STEP LOW AIRLOSS MATTRESS ON ORDER. PATIENT PRESENTS WITH STAGE 3 SACRAL ULCER, AND LEFT UPPER ARM HD ACCESS ALL POA. RECOMMEND SURGICAL CONSULT, DR FERDINAND HEAD NOTIFIED OF WOUND SURGICAL CONSULT HE IS CURRENTLY FOLLOWING FOR GEN SURGERY. ALL PRESSURE ULCER PREVENTION MEASURES ARE NOTED TO BE IN PLACE. Addendum: 05/31/19 at 0723 by ALICIA GRANT Amended: Links added. Addendum: 05/31/19 at 0735 by ALICIA WHITFIELDU ADDENDUM/CLARIFICATION SKIN ASSESSMENT OF STAGE 3 PRESSURE ULCER SHOULD NOT SAY SCABIES, SHOULD SAY FULL THICKNESS SKIN LOSS.
--- NOTE | 2019-05-31 07:26 | NUR ---
RT NOTE PT REC'D INTUBATED WITH ET TUBE SZ 7.5 @ 23 CM RIGHT LIP LINE. CUFF CHECKED VIA CASE LINER. ET TUBE SECURED VIA ANCHOR FAST. AMBU BAG @ BEDSIDE. SX DONE, SMALL SECRETIONS NOTED. ALARMS ON AND AUDIBLE. NO DISTRESS NOTED AT THIS TIME. WILL MONITOR T/O SHIFT. Addendum: 05/31/19 at 0727 by SHANNON MELARA RT Amended: Links added.
[2019-05-31] MEDS ORDERED: HYDROGEL DRESSING 90 GM TUBE TP PRN (07:30)
[2019-05-31] MEDS: PANTOPRAZOLE 40 MG VIAL IV SCH (08:22)
[2019-05-31 08:30] LABS: HEMOGLOBIN 6.8 g/dL (11.5-14.8)
[2019-05-31 08:39] LABS: ABG OXYGEN SATURATION 98.2 % (92.0-98.5); ABG PCO2 33.6 mmHg (35.0-45.0); ABG PH 7.479 (7.350-7.450); ABG PO2 154.6 mmHg (75.0-100.0); MetHb 0.3 % (0.0-1.5); O2Hb 96.9 % (94.0-97.0); PEEP,BG 5 cm H2O; SITE, ABG Left Femoral; VT, ABG 500 mL
[2019-05-31] MEDS: MUPIROCIN OINT 2% 22 GM TUBE SCH ×2 (09:04→21:55)
[2019-05-31] MEDS: HYDROGEL DRESSING 90 GM TUBE TP SCH (09:04)
--- NOTE | 2019-05-31 11:49 | NUR ---
RN NOTES BLOOD IS NOT READY PER BLOOD BANK YET .
[2019-05-31] MEDS: ACETAMINOPHEN 325 MG TABLET PO PRN (13:03)
--- NOTE | 2019-05-31 14:35 | NUR ---
RN NOTES LAB NOTIFED REGARDING MICROBIOLOGY RESULT UPDATE PER ID ORDER .
[2019-05-31] MEDS: MEROPENEM 500 MG in IV NS 0.9% 50 ML IV SCH (15:12)
--- NOTE | 2019-05-31 17:00 | NUR ---
RN NOTES PT HAS LARGE, HARD BROWNISH COLOR STOOL .
--- NOTE | 2019-05-31 18:24 | NUR ---
RN NOTES VSS STABLE, PT GETTING EEG AT THIS TIME, OFF SEDATION , DOES NOT FOLLOW COMMAND, TOLERATING TF WELL, PT PLACED ON KCI MATTRESS FOR SKIN AND WOUND PROTECTION, D5NS AT 75CC /HR RUNNING , SR UP x3, CALL LIGHT WITHIN EASY REACH , BED LOCKED AND IN LOWEST POSITION. WILL ENDORSE TO INSIDE TRUCKER NURSE FOR CONTINUITY OF CARE .
--- NOTE | 2019-05-31 19:04 | NUR ---
RN NOTES PT RECEIVING ONE UNIT OF PRBC WITH HD, VSS STABLE .
--- NOTE | 2019-05-31 19:30 | NUR ---
SPACE PHYSICIST RCD PT CURRENTLY RECEIVING HD AND RECEIVING 1 UNIT PRBC BY HD NURSE.
--- NOTE | 2019-05-31 22:00 | NUR ---
JOINT SETTER HD 1800 ML OUTPUT. TOLERATED WELL.
--- NOTE | 2019-05-31 23:39 | NUR ---
PT RCVD ORALLY INTUBATED WITH ET TUBE SZ 7.5 @ 23 CM @ LIP. ET TUBE SECURED VIA ANCHOR FAST. AMBU BAG @ BEDSIDE. SX DONE. VENT ALARMS ARE ON AND AUDIBLE. NO DISTRESS NOTED AT THIS TIME. Addendum: 05/31/19 at 2340 by PETE EGRONIMO RT Amended: Links added. Addendum: 05/31/19 at 2344 by PETE GERONIMO RT VENT PLUGGED INTO RED OUTLET.
[2019-06-01] VITALS (47 sets, daily range): BP systolic 81–220; BP diastolic 45–148
[2019-06-01] MEDS: hydrALAZINE HCL IV 20 MG VIAL IV PRN ×2 (00:09→05:54)
--- NOTE | 2019-06-01 00:09 | NUR ---
PROJECT ANALYST HYDRALAZINE GIVEN FOR ELEVATED SBP CONTINUE TO MONITOR.
[2019-06-01 00:39] LABS: HEMOGLOBIN 8.5 g/dL (11.5-14.8)
[2019-06-01] MEDS: IV D5/ 0.9% NACL 1,000 ML IV PRN (00:45)
[2019-06-01 02:28] LABS: OCCULT BLOOD STOOL POSITIVE (NEGATIVE)
[2019-06-01] MEDS: MORPHINE SULFATE INJ 2 MG/ML DISP.SYRIN IV PRN ×2 (03:59→22:11)
[2019-06-01] MEDS: PROPOFOL 100 ML IV PRN ×3 (04:15→19:39)
[2019-06-01] MEDS: LINEZOLID RTU BAG 600 MG in PREMIX 1 EA IV SCH ×2 (04:15→16:44)
--- NOTE | 2019-06-01 04:15 | NUR ---
TRUCKER HAND PT NOTED TO BE AGITATED NOT FOLLOWING COMMANDS. INITIATED PROPOFOL AT 5 MCG/KG/MIN AT THIS TIME. CONTINUE TO MONITOR.
--- NOTE | 2019-06-01 05:54 | NUR ---
LONGWALL HEADGATE OPERATOR HYDRALAZINE GIVEN FOR ELEVATED SBP CONTINUE TO MONITOR.
--- NOTE | 2019-06-01 06:00 | NUR ---
CERTIFIED PROSTHETIST VICE PRESIDENT PT ADEQUATELY SEDATED AT THIS TIME. CONTINUE TO MONITOR.
--- NOTE | 2019-06-01 07:15 | NUR ---
ICU/RN PT IS INTUBATED ON THE VENT AC MODE,FIO2-40%,SAT O2-100%.V/S STABLE. HR-125 BPM.PT IS AGITATED , OPEN HER YES NOT FOLLOWS COMMAND ,ON DIPRIVAN AT 25 ,DIPRIVAN INCREASED.PT HAS NG TUBE CLAMPED.IV-RIGHT FEMORAL PICC LINE.IV FLUIDS ON. T-101.1.GENERALIZED EDEMA PRESENT.PT IS ANURIC ON HD.LEFT ARM IV SHUNT AND RIGHT UPPER ARM SHUNT.WOUND ON THE LOWER BACK NOTED ,COVERED WITH MEPILEX.SUCTION PROVIDED.REPOSITION FOR COMFORT.
[2019-06-01] MEDS: PANTOPRAZOLE 40 MG VIAL IV SCH (08:28)
[2019-06-01] MEDS: HYDROGEL DRESSING 90 GM TUBE TP SCH (08:29)
[2019-06-01] MEDS: MUPIROCIN OINT 2% 22 GM TUBE SCH ×2 (08:29→21:34)
--- NOTE | 2019-06-01 09:00 | NUR ---
ICU/RN DUE MEDS ARE GIVEN ORDERED.AM CARE PROVIDED.PT HAS LARGE BM.DR LEGER AND DR MERRITT SEEN THE PT. CHEST X-RAY REVIEW MD NOTIFIED.IV FLUIDS STOP ORDERED.OK TO START NG TUBE FEEDING.
[2019-06-01] MEDS: ACETAMINOPHEN 325 MG TABLET PO PRN (09:13)
--- NOTE | 2019-06-01 09:13 | NUR ---
ICU/RN T-101.1.TYLENOL 650 MG VIA NG TUBE GIVEN ORDERED.
[2019-06-01] MEDS: NEPRO 1,000 ML BOTTLE GT PRN (14:26)
[2019-06-01] MEDS: MEROPENEM 500 MG in IV NS 0.9% 50 ML IV SCH (15:27)
--- NOTE | 2019-06-01 17:35 | NUR ---
ICU/RN PM CARE PROVIDED.DUE MEDS ARE GIVEN ORDERED.WOUND DRESSING DONE ORDERED.SUCTION PROVIDED.REPOSITION FOR COMFORT.PT IS SEDATED ON DIPRIVAN .OPEN EYES ,NOT FOLLOWS COMMAND.SPUTUM CULTURE AND BLOOD CULTURE DONE ORDERED.CONTINUE MONITORING.
[2019-06-02] VITALS (54 sets, daily range): BP systolic 87–162; BP diastolic 37–76
[2019-06-02] MEDS: PROPOFOL 100 ML IV PRN ×2 (04:14→12:57)
[2019-06-02] MEDS: LINEZOLID RTU BAG 600 MG in PREMIX 1 EA IV SCH ×2 (04:47→16:27)
[2019-06-02 05:01] LABS: BASOPHILS % (AUTO) 0.5 % (0.0-2.0); EOSINOPHILS % (AUTO) 1.1 % (0.0-6.0); HEMATOCRIT 25 % (33-45); LYMPHOCYTES # (AUTO) 0.9 /CMM (0.8-4.8); LYMPHOCYTES % (AUTO) 12.2 % (20.0-44.0); MEAN CORPUSCULAR HGB CONC 32 g/dl (31.0-36.0); MEAN CORPUSCULAR VOLUME 96 fL (82-100); MONOCYTES # (AUTO) 0.5 /CMM (0.1-1.30); MONOCYTES % (AUTO) 7.2 % (2.0-12.0); PLATELET COUNT (AUTO) 211 /CMM (150-450); RED BLOOD CELL COUNT(AUTO) 2.64 MIL/uL (4.0-5.2); WHITE BLOOD COUNT (AUTO) 7.5 K/uL (4.3-11.0)
[2019-06-02 05:26] LABS: CREATININE 6.2 mg/dL (0.6-1.3); MAGNESIUM 2.3 mg/dL (1.8-2.4); PHOSPHORUS 4.8 mg/dL (2.5-4.9); POTASSIUM 4.8 mmol/L (3.5-5.1)
--- NOTE | 2019-06-02 06:33 | NUR ---
rn notes patient resting comfortably in bed with no distress noted. breathing even and unlabored. vent setting well tolerated.on profofol drip at 30mcg, tolerating well. decreased to 25mcg, patient started to wake up and noted with restlessness. morphine given for facial grimace. increased to 30mcg, patient calm down. kept clean and dry. will endorse to next shift for continuity of care.
--- NOTE | 2019-06-02 08:00 | NUR ---
CAN CLOSING MACHINE OPERATOR: pt is sedated well with 30 mcg/kg/m Diprivan, reactive/facial grimacing with pain stimuli, on wrists restraints, SR, SBP over 100, O2sat. over 95%, no SOB, suctioned well, GTF residual 60 ml now with 30 ml/h feeding, keep HOB over 40, anuric
[2019-06-02] MEDS: PANTOPRAZOLE 40 MG VIAL IV SCH (09:08)
[2019-06-02] MEDS: HYDROGEL DRESSING 90 GM TUBE TP SCH (09:09)
[2019-06-02] MEDS: MUPIROCIN OINT 2% 22 GM TUBE SCH ×2 (09:09→20:48)
[2019-06-02] MEDS: Z GUARD REMEDY 2 OZ OINT TP PRN (09:10)
--- NOTE | 2019-06-02 09:40 | NUR ---
RIGGER APPRENTICE: HD nurse updated with pt.VS, labs, hold sedation vacation
--- NOTE | 2019-06-02 10:55 | NUR ---
ROLLS BAKER: pt.daughter is in room, updated with pt.VS, orders, POC
[2019-06-02] MEDS ORDERED: EPOETIN ALFA (10,000 UNIT) 10,000 UNIT/ML VIAL IV ONE (11:00)
--- NOTE | 2019-06-02 11:15 | NUR ---
ENGINEERING ASSOCIATE: is in room, updated with pt.VS, sedation level, suction amount, I/O, GTF, HD, agree to do sedation vacation after HD, detailed spoke with pt.daughter, see new orders
--- NOTE | 2019-06-02 12:45 | NUR ---
GENERAL CARGO CLERK: HD done, tolerated well, 400ml out, VSS, started sedation vacation
--- NOTE | 2019-06-02 14:00 | NUR ---
WIND TURBINE ERECTOR: CATIE Hernandez, CATIE Dawson were is room, updated with all above
--- NOTE | 2019-06-02 14:06 | NUR ---
AUTO GARAGE ATTENDANT: pt is without sedation by 30 mins, rest, no SOB/distress, able to open eyes, grimacing, short eyes contact+, no arms/legs activity, SR, SBP over 100, O2sat. over 94%, continue monitoring
--- NOTE | 2019-06-02 15:15 | NUR ---
MIXING HOUSE OPERATOR: pt.is without sedation, same neuro status, pt.can open eyes, short eyes contact+, grimacing with touch/reposition, arms/legs trace activity+, no SOB/distress, O2sat. over 94%, SR, SBP 162, will restart sedation before PM/bedbath, wounds care to protect for distress, pt.daughter is in room/updated
[2019-06-02] MEDS: MEROPENEM 500 MG in IV NS 0.9% 50 ML IV SCH (15:32)
--- NOTE | 2019-06-02 15:59 | NUR ---
MEDICAL TYPIST: GTF residual 200ml, hold GTF for 2 hrs
--- NOTE | 2019-06-02 18:01 | NUR ---
CULINARY ARTS INSTRUCTOR: pt is sedated well with 25 mcg/kg/m Diprivan, rest, no grimacing, SR, SBP over 90, O2sat. over 96%, no SOB, suctioned well, GT residual 120ml, continue hold GTF for 2 hrs more, keep HOB over 40, all PM/skin/wounds care done, BMx1/no blood
[2019-06-03] VITALS (46 sets, daily range): BP systolic 88–146; BP diastolic 25–71
[2019-06-03] MEDS: PROPOFOL 100 ML IV PRN (03:24)
[2019-06-03 05:24] LABS: BASOPHILS % (AUTO) 0.6 % (0.0-2.0); EOSINOPHILS % (AUTO) 6.9 % (0.0-6.0); HEMATOCRIT 24 % (33-45); HEMOGLOBIN 7.6 g/dL (11.5-14.8); LYMPHOCYTES # (AUTO) 0.5 /CMM (0.8-4.8); LYMPHOCYTES % (AUTO) 7.8 % (20.0-44.0); MEAN CORPUSCULAR HGB CONC 31 g/dl (31.0-36.0); MEAN CORPUSCULAR VOLUME 95 fL (82-100); MONOCYTES # (AUTO) 0.4 /CMM (0.1-1.30); MONOCYTES % (AUTO) 5.5 % (2.0-12.0); NEUTROPHILS # (AUTO) 5.5 /CMM (1.8-8.9); NEUTROPHILS % (AUTO) 79.2 % (43.0-81.0); PLATELET COUNT (AUTO) 171 /CMM (150-450); RED BLOOD CELL COUNT(AUTO) 2.54 MIL/uL (4.0-5.2); WHITE BLOOD COUNT (AUTO) 6.9 K/uL (4.3-11.0)
[2019-06-03 05:27] LABS: CALCIUM, SERUM 8.3 mg/dL (8.5-10.1); CREATININE 4.8 mg/dL (0.6-1.3); MAGNESIUM 2.3 mg/dL (1.8-2.4); PHOSPHORUS 4.1 mg/dL (2.5-4.9); POTASSIUM 4.5 mmol/L (3.5-5.1)
[2019-06-03] MEDS: LINEZOLID RTU BAG 600 MG in PREMIX 1 EA IV SCH (05:38)
--- NOTE | 2019-06-03 07:45 | NUR ---
FAST FOOD CREW MEMBER: pt.is grimacing, coughing, on 25 mcg/kg/m Diprivan, suctioned well, increased sedation to 30 mcg/kg/m, H/H 7.6/24, O2sat. over 96%, SR, SBP over 100, anuric, GTF residual 30ml, pt.is duty now/BM without blood, [place],MARKETING INTELLIGENCE ANALYST is in room, updated with all above, included sedation vacation reaction, high GTF residual episodes, med/recon request by pharmacy, HD
--- NOTE | 2019-06-03 08:15 | NUR ---
SUPERINTENDENT SYSTEM OPERATION: started titrate Diprivan down for sedation vacation
[2019-06-03] MEDS: Z GUARD REMEDY 2 OZ OINT TP PRN (09:15)
[2019-06-03] MEDS: HYDROGEL DRESSING 90 GM TUBE TP SCH (09:16)
[2019-06-03] MEDS: MUPIROCIN OINT 2% 22 GM TUBE SCH ×2 (09:16→20:17)
[2019-06-03] MEDS: PANTOPRAZOLE 40 MG VIAL IV SCH (09:17)
--- NOTE | 2019-06-03 10:00 | NUR ---
BRICKLAYER SUPERVISOR: pt is without sedation since 0900, rest, no SOB/distress, O2sat. over 96%, can open eyes, no eyes contact now, unable to follow commands, trace arms/legs activity, pt.niece is in room/updated with POC
--- NOTE | 2019-06-03 10:15 | NUR ---
RN BABY: is in room, updated with all above, VS, I/O, NGTF high residual episodes, reevaluated neuro status, said: try keeping pt.without sedation as possible with Ativan PRN as needed for distress prevention, spoke with pt.niece, see new orders
--- NOTE | 2019-06-03 11:38 | NUR ---
BUSINESS PROCESS EXPERT: pt.nemesio is in room, ok to keep restraints off, EDEN Dawson is in room, updated with pt.current condition, VS, BMs, I/O, T 100.1, labs, NGTF, wound, HD, see new orders
[2019-06-03] MEDS: MEROPENEM 500 MG in IV NS 0.9% 50 ML IV SCH ×2 (11:52→23:20)
--- NOTE | 2019-06-03 14:00 | NUR ---
MARINE STRUCTURAL WELDER: pt.is rest, O2sat. WNL, no SOB/no distress
[2019-06-03] MEDS: LORAZEPAM INJ 2 MG/ML VIAL IVP PRN ×3 (15:50→19:35)
--- NOTE | 2019-06-03 15:50 | NUR ---
ROLL CAPPER: pt is grimacing, slightly restless, RR 20-24, O2sat WNL, Ativan 1 mg IV given before PM/skin/wound care
[2019-06-03] MEDS: ACETAMINOPHEN 650 MG/20.3 ML UDC PO PRN (16:10)
--- NOTE | 2019-06-03 17:40 | NUR ---
RT NOTE: PATIENT RECEIVED ORALLY INTUBATED WITH 7.5 ETT SECURED AT 23 CM MID LIP LINE ON PB840 VENT. ALARMS VERIFIED AND AUDIBLE. VENT PLUGGED INTO RED OUTLET. AMBU BAG AT [facility].
[2019-06-03] MEDS: LINEZOLID 600 MG TABLET NG SCH (18:15)
--- NOTE | 2019-06-03 20:00 | NUR ---
PAY CLERK - NOTES - PT IS INTUBATED ON THE VENT AC MODE,FIO2-40%. V/S STABLE. ABLE TO OPEN EYES, TRACKS, AND CAN NOD APPROPRIATELY TO YES OR NO QUESTIONS AND FOLLOW SIMPLE COMMANDS; RIGHT AND LEFT HANDS VERY WEAK WITH +4 EDEMA. PT HAS NG TUBE FEEDING NEPRO @ 40, 60 ML RESIDUALS. IV - RIGHT FEMORAL PICC LINE. GENERALIZED EDEMA PRESENT. PT IS ANURIC ON HD.LEFT ARM IV SHUNT AND RIGHT UPPER ARM SHUNT. WOUND ON THE LOWER BACK AND LEFT EAR NOTED ,COVERED WITH MEPILEX.SUCTION PROVIDED.REPOSITION FOR COMFORT.
--- NOTE | 2019-06-03 20:03 | NUR ---
RT NOTES PT RECEIVED INTUBATED WITH 7.5 ETT SECURED 23CM @THE LIP LINE. NO RESP DISTRESS NOTED AT THIS TIME. AIRWAY PATENT AND SECURED. DIKE SUPERVISOR DONE. PT SUCTIONED. ALARMS SET AND AUDIBLE. AMBUBAG AT BEDSIDE. VENT CONT TO RED OUTLET. WILL CONT TO MONITOR. Addendum: 06/03/19 at 2053 by PADMA CAMARGO RT Amended: Links added.
[2019-06-03] MEDS: MORPHINE SULFATE INJ 2 MG/ML DISP.SYRIN IV PRN (23:20)
[2019-06-03] MEDS: NEPRO 1,000 ML BOTTLE GT PRN (23:35)
[2019-06-04] VITALS (47 sets, daily range): BP systolic 97–164; BP diastolic 39–111
[2019-06-04] MEDS: LORAZEPAM INJ 2 MG/ML VIAL IVP PRN ×2 (01:05→04:11)
[2019-06-04] MEDS: ONDANSETRON HCL/PF 4 MG/2 ML VIAL IVP PRN (04:12)
[2019-06-04 04:27] LABS: BASOPHILS # (AUTO) 0.1 /CMM (0.0-0.2); EOSINOPHILS % (AUTO) 6.8 % (0.0-6.0); HEMATOCRIT 25 % (33-45); HEMOGLOBIN 7.7 g/dL (11.5-14.8); LYMPHOCYTES # (AUTO) 0.8 /CMM (0.8-4.8); LYMPHOCYTES % (AUTO) 12.2 % (20.0-44.0); MEAN CORPUSCULAR HGB CONC 31 g/dl (31.0-36.0); MEAN CORPUSCULAR VOLUME 96 fL (82-100); MONOCYTES # (AUTO) 0.3 /CMM (0.1-1.30); NEUTROPHILS # (AUTO) 4.8 /CMM (1.8-8.9); PLATELET COUNT (AUTO) 175 /CMM (150-450); WHITE BLOOD COUNT (AUTO) 6.4 K/uL (4.3-11.0)
[2019-06-04 04:34] LABS: CALCIUM, SERUM 8.4 mg/dL (8.5-10.1); CREATININE 5.8 mg/dL (0.6-1.3); POTASSIUM 4.6 mmol/L (3.5-5.1)
[2019-06-04] MEDS: LINEZOLID 600 MG TABLET NG SCH (05:27)
--- NOTE | 2019-06-04 07:00 | NUR ---
RN NOTES RECEIVED PT ON BED , INCUBATED, ON VENT , TOLERATING CURRENT SETTING WELL, O2 SAT WNL , ABLE TO OPEN EYES, TRACKS, AND CAN NOD APPROPRIATELY TO YES OR NO QUESTIONS AND FOLLOW SIMPLE COMMANDS; RIGHT AND LEFT HANDS VERY WEAK WITH +4 EDEMA. TF ON HOLD AT THIS TIME FOR HIGH RESIDUAL PER CONTENT PRODUCTION SPECIALIST REPORT , RIGHT FEMORAL PICC LINE SITE CLEAN,DRY AND INTACT, GENERALIZED EDEMA PRESENT. SR UP x3, CALL LIGHT WITHIN EASY REACH, BED LOCKED AND IN LOWEST POSITION, CONTINUE TO MONITOR .
[2019-06-04] MEDS: MUPIROCIN OINT 2% 22 GM TUBE SCH ×2 (08:29→21:20)
[2019-06-04] MEDS: PANTOPRAZOLE 40 MG VIAL IV SCH (08:29)
[2019-06-04] MEDS: HYDROGEL DRESSING 90 GM TUBE TP SCH (08:29)
[2019-06-04] MEDS: MEROPENEM 500 MG in IV NS 0.9% 50 ML IV SCH ×2 (11:06→23:05)
--- NOTE | 2019-06-04 12:00 | NUR ---
RN NOTES PT STILL HAS ABOUT 100CC NGT RESIDUAL , TF STILL ON HOLD, CONTINUE TO MONITOR .
--- NOTE | 2019-06-04 16:00 | NUR ---
RN NOTES PT VOMITED ABOUT 50 CC GREENISH LIQUIDLY GASTRIC CONTENT, NGT ATTACHED TO LIS , 500 CC RESIDUAL DRAINED. NELL MARKETING PRODUCTION SPECIALIST NOITFED .
[2019-06-04] MEDS: LORAZEPAM INJ 2 MG/ML VIAL IV PRN (16:39)
--- NOTE | 2019-06-04 18:30 | NUR ---
RN NOTES PT RECEIVING HD AT THIS TIME, NGT TO LIS, VSS STABLE, SUPPORTIVE FAMILY AT THE BEDSIDE, NO DISTRESS NOTED, WILL ENDORSE TO MEDIA RELATIONS ASSOCIATE NURSE FOR CONTINUITY OF CARE.
--- NOTE | 2019-06-04 20:00 | NUR ---
PLATING TANK OPERATOR APPRENTICE - NOTES - PT IS INTUBATED ON THE VENT AC MODE,FIO2-40%. V/S STABLE. ABLE TO OPEN EYES, TRACKS, AND CAN NOD APPROPRIATELY TO YES OR NO QUESTIONS AND FOLLOW SIMPLE COMMANDS; RIGHT AND LEFT HANDS VERY WEAK WITH +4 EDEMA. PT HAS NG TUBE, TF ON HOLD AT THIS TIME FOR HIGH RESIDUAL PER DAY SHIFT REPORT, RIGHT FEMORAL PICC LINE SITE CLEAN,DRY AND INTACT, GENERALIZED EDEMA PRESENT. PT IS ANURIC ON HD, LEFT ARM IV SHUNT AND RIGHT UPPER ARM SHUNT. WOUND ON THE LOWER BACK AND LEFT EAR NOTED ,COVERED WITH MEPILEX. SUCTION PROVIDED. REPOSITION FOR COMFORT. SR UP x3, CALL LIGHT WITHIN EASY REACH, BED LOCKED AND IN LOWEST POSITION, CONTINUE TO MONITOR.
--- NOTE | 2019-06-04 21:00 | NUR ---
HD COMPLETED VIA LEFT UPPER ARM AV FISTULA, 2000 ML OUT. VSS, WILL CONTINUE TO MONITOR
[2019-06-04] MEDS: MORPHINE SULFATE INJ 2 MG/ML DISP.SYRIN IV PRN (22:40)
[2019-06-05] VITALS (50 sets, daily range): BP systolic 95–166; BP diastolic 47–113
[2019-06-05] MEDS: LORAZEPAM INJ 2 MG/ML VIAL IV PRN (00:57)
[2019-06-05 04:42] LABS: BASOPHILS # (AUTO) 0.1 /CMM (0.0-0.2); BASOPHILS % (AUTO) 0.9 % (0.0-2.0); EOSINOPHILS % (AUTO) 5.4 % (0.0-6.0); HEMATOCRIT 23 % (33-45); LYMPHOCYTES # (AUTO) 0.5 /CMM (0.8-4.8); LYMPHOCYTES % (AUTO) 8.8 % (20.0-44.0); MEAN CORPUSCULAR HGB CONC 31 g/dl (31.0-36.0); MEAN CORPUSCULAR VOLUME 96 fL (82-100); MONOCYTES # (AUTO) 0.3 /CMM (0.1-1.30); MONOCYTES % (AUTO) 5.2 % (2.0-12.0); NEUTROPHILS # (AUTO) 4.7 /CMM (1.8-8.9); NEUTROPHILS % (AUTO) 79.7 % (43.0-81.0); PLATELET COUNT (AUTO) 146 /CMM (150-450); RED BLOOD CELL COUNT(AUTO) 2.39 MIL/uL (4.0-5.2); WHITE BLOOD COUNT (AUTO) 5.9 K/uL (4.3-11.0)
[2019-06-05 04:52] LABS: CALCIUM, SERUM 8.5 mg/dL (8.5-10.1); CREATININE 4.2 mg/dL (0.6-1.3); POTASSIUM 4.1 mmol/L (3.5-5.1)
--- NOTE | 2019-06-05 06:10 | NUR ---
DR BRASHER NOTIFIED OF HEMOGLOBIN 7.0 AND HEMATOCRIT 23, NO VISIBLE BLEEDING, NO NEW ORDERS.
--- NOTE | 2019-06-05 07:00 | NUR ---
RN NOTES RECEIVED PT ON BED, INTUBATED ON THE VENT AC MODE TOLERATING CURRENT VENT SETTING WELL, NO DISTRESS NOTED, ETT SUCTIONING DONE, ABLE TO OPEN EYES, TRACKS, AND CAN NOD APPROPRIATELY TO YES OR NO QUESTIONS AND FOLLOW SIMPLE COMMANDS; RIGHT AND LEFT HANDS VERY WEAK WITH +4 EDEMA. PT HAS NGT ATTACHED TO LIS , NO DRAINING NOTED AT THIS TIME, TUBE, TF ON HOLD AT THIS TIME RIGHT FEMORAL PICC LINE SITE CLEAN,DRY AND INTACT, GENERALIZED EDEMA PRESENT. PT IS ANURIC ON HD, REPOSITION FOR COMFORT. SR UP x3, CALL LIGHT WITHIN EASY REACH, BED LOCKED AND IN LOWEST POSITION, CONTINUE TO MONITOR.
--- NOTE | 2019-06-05 07:46 | NUR ---
RT Pt received orally intubated on mechanical ventilation with noted settings. Pt is awake and responds to stimuli. Vent is plugged into red outlet. No SOB or respiratory distress noted. Addendum: 06/05/19 at 1115 by JERONIMO WOODARD RT Amended: Links added.
[2019-06-05] MEDS: PANTOPRAZOLE 40 MG VIAL IV SCH ×4 (08:40→21:49)
[2019-06-05] MEDS: MUPIROCIN OINT 2% 22 GM TUBE SCH ×2 (08:40→21:48)
[2019-06-05] MEDS: HYDROGEL DRESSING 90 GM TUBE TP SCH (08:41)
[2019-06-05] MEDS: NEPRO 1,000 ML BOTTLE GT PRN (10:49)
[2019-06-05 10:57] LABS: ABG BASE EXCESS 1.9 mmol/L; ABG OXYGEN SATURATION 98.1 % (92.0-98.5); ABG PCO2 32.7 mmHg (35.0-45.0); ABG PH 7.501 (7.350-7.450); ABG PO2 138.5 mmHg (75.0-100.0); AaDO2 109.1 mmHg; COHb 1.3 % (0.5-1.5); MetHb 0.4 % (0.0-1.5); O2Hb 96.4 % (94.0-97.0); SITE, ABG Left Femoral; VENT MODE, BG SIMV 4 450 40% +5
--- NOTE | 2019-06-05 11:05 | NUR ---
RT Pt extubated per Dr. Townsend orders, pt is on 2L nasal cannula with adequate SpO2. Pt is awake and alert. No SOB or respiratory distress noted. Addendum: 06/05/19 at 1115 by JERONIMO WOODARD RT Amended: Links added.
--- NOTE | 2019-06-05 11:05 | NUR ---
RN NOTES PT EXTUBATED PER MD ORDER , O2 SAT WNL, VSS STABLE, CONTINUE TO MONITOR .
[2019-06-05] MEDS: METOCLOPRAMIDE HCL 10 MG/10 ML UDC PO SCH ×3 (11:06→23:30)
[2019-06-05] MEDS: MEROPENEM 500 MG in IV NS 0.9% 50 ML IV SCH ×2 (11:06→23:30)
--- NOTE | 2019-06-05 15:00 | NUR ---
RN NOTES PT TOLERATING TF AT 10CC/HR WELL, NO RESIDUAL NOTED, CONTINUE TO MONITOR .
--- NOTE | 2019-06-05 18:00 | NUR ---
RN NOTES PT STABLE, A/Ox3, VERBALLY COMMUNICATING , ON 1L O2 N/C , NO SOB NOTED, SR UP x3, CALL LIGHT WITHIN EASY REACH, BED LOCKED AND IN LOWEST POSITION, WILL ENDORSE TO TECHNICAL MGR NURSE FOR CONTINUITY OF CARE .
[2019-06-06] VITALS (15 sets, daily range): BP systolic 105–154; BP diastolic 41–86
[2019-06-06] MEDS: MORPHINE SULFATE INJ 2 MG/ML DISP.SYRIN IV PRN ×3 (00:49→14:18)
[2019-06-06] MEDS: ONDANSETRON HCL/PF 4 MG/2 ML VIAL IVP PRN (00:59)
[2019-06-06 04:49] LABS: BASOPHILS # (AUTO) 0.1 /CMM (0.0-0.2); BASOPHILS % (AUTO) 1.2 % (0.0-2.0); EOSINOPHILS % (AUTO) 7.3 % (0.0-6.0); HEMATOCRIT 23 % (33-45); HEMOGLOBIN 7.1 g/dL (11.5-14.8); LYMPHOCYTES # (AUTO) 0.5 /CMM (0.8-4.8); LYMPHOCYTES % (AUTO) 10.6 % (20.0-44.0); MEAN CORPUSCULAR HGB CONC 31 g/dl (31.0-36.0); MEAN CORPUSCULAR VOLUME 96 fL (82-100); MONOCYTES # (AUTO) 0.5 /CMM (0.1-1.30); MONOCYTES % (AUTO) 9.7 % (2.0-12.0); NEUTROPHILS # (AUTO) 3.5 /CMM (1.8-8.9); NEUTROPHILS % (AUTO) 71.2 % (43.0-81.0); PLATELET COUNT (AUTO) 152 /CMM (150-450); RED BLOOD CELL COUNT(AUTO) 2.42 MIL/uL (4.0-5.2); WHITE BLOOD COUNT (AUTO) 4.9 K/uL (4.3-11.0)
[2019-06-06 05:01] LABS: ALBUMIN 1.5 g/dL (3.4-5.0); BILIRUBIN,TOTAL 0.9 mg/dL (0.2-1.0); CALCIUM, SERUM 8.9 mg/dL (8.5-10.1); MAGNESIUM 2.4 mg/dL (1.8-2.4); PHOSPHORUS 5.1 mg/dL (2.5-4.9); POTASSIUM 4.3 mmol/L (3.5-5.1); TOTAL PROTEIN, SERUM 6.7 g/dL (6.4-8.2)
[2019-06-06] MEDS: METOCLOPRAMIDE HCL 10 MG/10 ML UDC PO SCH ×4 (05:31→23:19)
--- NOTE | 2019-06-06 08:00 | NUR ---
ICU/RN INITIAL NOTES,AM' RECEIVED BEDSIDE REPORT FROM NIGHT NURSE. PT ALERT, AWAKE, FOLLOWS COMMANDS, CONFUSED. PT ON 2LITERS NASAL CANULA, NO ACUTE DISTRESS NOTED PT EXTUBATED YESTERDAY. SINUS ON TELE WITH BBB. PT ANURIC. POSSIBLE HD THIS AM. POSSIBLE SWALLOW EVAL THIS AM. RIGHT NARE NGT IN PLACE, TUBE FEEDING INFUSING AT 10 ML/HR. RESIDUALS NOTED, THIS AM 55 ML NOTED, MD AWARE WILL CONTINUE TO MONITOR, RIGHT FEM PICC LINE PATENT AND INTACT NO S/S OF INFECTION OR INFILTRATION NOTED. ALL NEEDS WILL BE ATTENDED TO, SAFETY MEASURES TAKEN, BED IN LOW POSITION, SIDE RAILS UP, CALL LIGHT WITHIN REACH.
[2019-06-06] MEDS: PANTOPRAZOLE 40 MG VIAL IV SCH ×3 (09:00→21:40)
[2019-06-06] MEDS: HYDROGEL DRESSING 90 GM TUBE TP SCH (09:44)
[2019-06-06] MEDS: MUPIROCIN OINT 2% 22 GM TUBE SCH ×2 (09:44→21:40)
--- NOTE | 2019-06-06 10:35 | NUR ---
ICU/RN: PT TRANSFERRED TO YE 117-2 WITH ACLS GUIDELINES. PT ON 2LITERS HUMIDIFIED 02 VIA NASAL CANULA, NO DISTRESS NOTED. SINUS ON TELE. DAUGHTER OF PT AT BEDSIDE. BEDSIDE REPORT ENDORSED TO ANTHONY WADE. ALL NEEDS ATTENDED TO. ALL BELONGINGS AND MEDICATIONS TRANSFERRED WITH PT. WILL CONTINUE CARE.
[2019-06-06] MEDS: MEROPENEM 500 MG in IV NS 0.9% 50 ML IV SCH ×2 (11:39→23:19)
--- NOTE | 2019-06-06 18:00 | NUR ---
rn note pt had hd at bedside by SIRI Gonzalez RN. tolerated well. 1300 ml output.
[2019-06-07] VITALS (10 sets, daily range): BP systolic 108–150; BP diastolic 53–84
[2019-06-07] MEDS: LORAZEPAM INJ 2 MG/ML VIAL IV PRN (01:46)
[2019-06-07] MEDS: METOCLOPRAMIDE HCL 10 MG/10 ML UDC PO SCH ×3 (05:05→17:28)
[2019-06-07 06:57] LABS: BASOPHILS % (AUTO) 1.2 % (0.0-2.0); EOSINOPHILS % (AUTO) 9.1 % (0.0-6.0); HEMATOCRIT 23 % (33-45); LYMPHOCYTES # (AUTO) 0.6 /CMM (0.8-4.8); LYMPHOCYTES % (AUTO) 17.6 % (20.0-44.0); MEAN CORPUSCULAR HGB CONC 30 g/dl (31.0-36.0); MEAN CORPUSCULAR VOLUME 96 fL (82-100); MONOCYTES # (AUTO) 0.5 /CMM (0.1-1.30); MONOCYTES % (AUTO) 13.9 % (2.0-12.0); NEUTROPHILS % (AUTO) 58.2 % (43.0-81.0); PLATELET COUNT (AUTO) 137 /CMM (150-450); RED BLOOD CELL COUNT(AUTO) 2.41 MIL/uL (4.0-5.2); WHITE BLOOD COUNT (AUTO) 3.4 K/uL (4.3-11.0)
[2019-06-07 07:05] LABS: HEMOGLOBIN 6.9 g/dL (11.5-14.8)
--- NOTE | 2019-06-07 07:10 | NUR ---
RN NOTE RECEIVED CRITICAL LAB VALUE HGB 6.9. PAGED FIRE FIGHTERS DISPATCHER.
--- NOTE | 2019-06-07 07:15 | NUR ---
RN NOTE THALIA CALLED BACK. NEW ORDERS WERE GIVEN FOR PRBCS. WILL ENDORSE TO MORNING SHIFT.
[2019-06-07 07:22] LABS: CALCIUM, SERUM 8.5 mg/dL (8.5-10.1); CREATININE 4.5 mg/dL (0.6-1.3); POTASSIUM 4.6 mmol/L (3.5-5.1)
--- NOTE | 2019-06-07 07:34 | NUR ---
RN OPENING NOTES RECEIVED PATIENT IN BED, A/O X2. VERBALLY RESPONSIVE ,ABLE TO STATE NAME, AND PLACE WHERE SHE AT RIGHT NOW. DENIES ANY PAIAN OR DISCOMFORT AT THE MOMENT. IV ACCESS ON R FEMORAL PICC LINE WITH ON GOING NS TKO WITH REMAINING 150ML ON THE BAG. AVF ON DANIELLE NO SIGNS OF BLEEDING NOTED. WAS ENDORSED BY NIGHT RN THAT HGB IS 6.9. MD MADE AWARE. SAFETY MEASURES APPLIED. CALL LIGHT WITHIN REACH. WILL CONTINUE TO MONITOR.
[2019-06-07 08:04] LABS: EOSINOPHILS % (MANUAL) 9 % (0-4); LYMPHOCYTES % (MANUAL) 18 % (16-48); MONOCYTES % (MANUAL) 12 % (0-11.0); NEUTROPHILS % (MANUAL) 61 (42-76)
[2019-06-07] MEDS: PANTOPRAZOLE 40 MG VIAL IV SCH ×2 (08:55→20:15)
[2019-06-07] MEDS: MUPIROCIN OINT 2% 22 GM TUBE SCH ×2 (09:06→20:19)
[2019-06-07] MEDS: HYDROGEL DRESSING 90 GM TUBE TP SCH (09:06)
--- NOTE | 2019-06-07 10:20 | NUR ---
RN NOTES TRANSFUSING 1 UNIT PRBC WITH STABLE V/S BP.
--- NOTE | 2019-06-07 10:30 | NUR ---
RN NOTES ON GOING BLOOD TRANSFUSION WITH NO SIGNS OF ALLERGIC REACTIONS. DENIES ANY DISCOMFORT AT THE MOMENT . VITAL SIGNS ARE STABLE FOR PATIENT. WILL CONTINUE TO MONITOR.
[2019-06-07] MEDS: MORPHINE SULFATE INJ 2 MG/ML DISP.SYRIN IV PRN (11:37)
[2019-06-07] MEDS: MEROPENEM 500 MG in IV NS 0.9% 50 ML IV SCH (12:47)
--- NOTE | 2019-06-07 13:09 | NUR ---
RN NOTES TRANSFUSED 1 UNIT PRBC. PATIENT IS AWAKE, WITH SISTER ON BEDSIDE. VITAL SIGNS ARE STABLE, NO SIGNS OF ALLERGIC REACTION.
--- NOTE | 2019-06-07 19:13 | NUR ---
RN CLOSING NOTES PATIENT IN BED, RESTING COMFORTABLY. DENIES ANY PAIN OR DISCOMFORT AT THE MOMENT. IN NO APPARENT DISTRESS NOTED. NO CHANGE OF CONDITION AFTER TRANSFUSION AND THROUGHOUT THE SHIFT . KEPT CLEAN AND DRY. ALL NEEDS MET AND ATTENDED. SAFETY MEASURES IN PLACED, CALL LIGHT WITHIN REACHED. ENDORSED TO PM RN FOR DANNA
--- NOTE | 2019-06-07 20:00 | NUR ---
RN OPENING NOTES RECEIVED PATIENT IN BED, A/O X2 WITH PERIOD OF CONFUSSION , VERBALLY RESPONSIVE . DENIES ANY PAIN OR DISCOMFORT AT THIS TIME NO SOB NO DISTRESS NOTED , ON MONITOR SR- 89 SATING 92 % ON NC AT 4LITERS OF O2 .IV ACCESS ON R FEMORAL TLC INTACT AND PATENT, AVF ON DANIELLE AND PERNELL NO SIGNS OF BLEEDING NOTED. BRUITS AND THRILL NOTED NO BP TAKING ON BOTH ARM ,SAFETY MEASURES APPLIED. CALL LIGHT WITHIN REACH. WILL CONTINUE TO MONITOR. V/S STABLE AFEBRILE ALL NEEDS ATTENDED TOO,DUE MEDS GIVEN ORDERED.
[2019-06-08] VITALS (7 sets, daily range): BP systolic 130–159; BP diastolic 41–82
[2019-06-08] MEDS: METOCLOPRAMIDE HCL 10 MG/10 ML UDC PO SCH ×5 (00:12→23:37)
[2019-06-08] MEDS: MEROPENEM 500 MG in IV NS 0.9% 50 ML IV SCH ×2 (00:12→11:17)
[2019-06-08 06:25] LABS: BASOPHILS # (AUTO) 0.1 /CMM (0.0-0.2); BASOPHILS % (AUTO) 1.4 % (0.0-2.0); EOSINOPHILS % (AUTO) 9.6 % (0.0-6.0); HEMATOCRIT 25 % (33-45); HEMOGLOBIN 7.8 g/dL (11.5-14.8); LYMPHOCYTES # (AUTO) 0.8 /CMM (0.8-4.8); LYMPHOCYTES % (AUTO) 20.5 % (20.0-44.0); MEAN CORPUSCULAR HGB CONC 31 g/dl (31.0-36.0); MEAN CORPUSCULAR VOLUME 95 fL (82-100); MONOCYTES # (AUTO) 0.5 /CMM (0.1-1.30); MONOCYTES % (AUTO) 12.9 % (2.0-12.0); NEUTROPHILS % (AUTO) 55.6 % (43.0-81.0); PLATELET COUNT (AUTO) 135 /CMM (150-450); RED BLOOD CELL COUNT(AUTO) 2.65 MIL/uL (4.0-5.2); WHITE BLOOD COUNT (AUTO) 3.7 K/uL (4.3-11.0)
[2019-06-08 06:29] LABS: CALCIUM, SERUM 8.6 mg/dL (8.5-10.1); CREATININE 5.6 mg/dL (0.6-1.3); POTASSIUM 4.7 mmol/L (3.5-5.1)
--- NOTE | 2019-06-08 06:52 | NUR ---
RN NOTES PATIENT IN BED RESTING COMFORTABLY. NO S/S OF DISTRESS NOTED. BREATHING NORMAL NO SOB NOTED. SKIN WARM AND DRY TO TOUCH. RT FEMORAL IV INTACT FLUSHING WELL NO S/S OF BLEEDING NOTED. AVF ON DANIELLE AND PERNELL NO SIGNS OF BLEEDING NOTED. BRUITS AND THRILL PRESENT. SAFETY MEASURES IN PLACE. BED IN LOW AND LOCKED POSITION. ALL NEEDS ATTENDED. CALL LIGHT WITHIN REACH. ENDORSE PATIENT TO AM SHIFT.
--- NOTE | 2019-06-08 07:28 | NUR ---
RN OPENING NOTES RECEIVED PATIENT SLEEPING IN BED COMFORTABLY, EASILY AROUSED. SHE IS AO X1-2 WITH EPISODES OF CONFUSION, VERBAL, AND ON BEDREST. SHE IS ON 4L OF OXYGEN VIA NC, TOLERATING WELL, NO SOB OR RESP DISTRESS PRESENT. TELE MONITOR SHOWING SR WITH HR IN THE 90'S. SACRAL WOUND IS PRESENT, WILL ADDRESS PER WOUND CARE PLAN. DANIELLE AND PERNELL FISTULAS ARE PATENT AND INTACT, IV SITE ON R FEMORAL IS PATENT AND INTACT, NO FLUIDS ORDERED AT THIS TIME. SAFETY MEASURES HAVE BEEN IMPLEMENTED, CALL LIGHT IS WITHIN REACH, BED IS IN LOWEST AND LOCKED POSITION, SIDE RAILS UP X2, WILL CONTINUE TO MONITOR FOR ANY CHANGES.
[2019-06-08] MEDS: HYDROGEL DRESSING 90 GM TUBE TP SCH (08:50)
[2019-06-08] MEDS: PANTOPRAZOLE 40 MG VIAL IV SCH ×2 (08:50→21:56)
[2019-06-08] MEDS: MUPIROCIN OINT 2% 22 GM TUBE SCH ×2 (08:51→22:10)
[2019-06-08 09:00] LABS: EOSINOPHILS % (MANUAL) 2 % (0-4); LYMPHOCYTES % (MANUAL) 7 % (16-48); MONOCYTES % (MANUAL) 4 % (0-11.0); NEUTROPHILS % (MANUAL) 87 (42-76)
--- NOTE | 2019-06-08 13:31 | NUR ---
RN NOTES PATIENT IS COMPLAINING OF GENERALIZED ITCHINESS, IN THE ARMS, LEGS, AND EYES. APPLIED COLD COMPRESSES TO AFFECTED AREAS BUT TO NO HELP, PAGED DR. LEGER AND RECEIVED ORDER FOR BENEDRYL 25 MG IV Q6H PRN, WILL CONTINUE TO MONITOR FOR ANY CHANGES.
[2019-06-08] MEDS: VALACYCLOVIR HCL 500 MG TABLET PO SCH (13:40)
[2019-06-08] MEDS: diphenhydrAMINE HCL 50 MG/ML VIAL IV PRN (13:48)
--- NOTE | 2019-06-08 19:00 | NUR ---
RN CLOSING NOTES PATIENT IS RESTING IN BED COMFORTABLY AT THIS TIME. SHE IS ON 3L VIA NC, TOLERATING WELL, NO SOB OR RESP DISTRESS. NO ACUTE CHANGES OCCURRED THROUGHOUT THE SHIFT, VITAL SIGNS ARE STABLE, PT NEEDS HAVE BEEN MET. SAFETY MEASURES HAVE BEEN IMPLEMENTED, CALL LIGHT IS WITHIN REACH, BED IS IN LOWEST AND LOCKED POSITION, SIDE RAILS UP X2, PT WILL BE ENDORSED TO NIGHTSHIFT RN FOR DANNA.
--- NOTE | 2019-06-08 19:30 | NUR ---
RN NOTES PT HAS BEEN ENDORSED TO NIGHTSHIFT RN FOR DANNA
[2019-06-08] MEDS: LORAZEPAM INJ 2 MG/ML VIAL IV PRN (21:58)
[2019-06-09] VITALS (8 sets, daily range): BP systolic 134–165; BP diastolic 76–85
[2019-06-09] MEDS: LORAZEPAM INJ 2 MG/ML VIAL IV PRN (02:04)
[2019-06-09] MEDS: METOCLOPRAMIDE HCL 10 MG/10 ML UDC PO SCH ×3 (07:16→18:00)
--- NOTE | 2019-06-09 07:43 | NUR ---
RN OPENING NOTE RECEIVED PT AWAKE IN BED HOB ELEVATED. APPEARS CALM & RELAXED. PT IS ON NC 4L TOLERATING WELL. NO C/O PAIN OR DISCOMFORT. PT IS ALERT W/ PERIODS OF CONFUSION. TELE MONITOR READING IS SR. LUE & RUE EDEMA PRESENT. DANIELLE & PERNELL FISTULA PRESENT. SAFETY MEASURES HAVE BEEN IMPLEMENTED. CALL LIGHT WITHIN REACH. BED ON LOWEST & LOCKED POSITION. WILL CONT TO MONITOR.
[2019-06-09] MEDS: MORPHINE SULFATE INJ 2 MG/ML DISP.SYRIN IV PRN (08:08)
[2019-06-09] MEDS: PANTOPRAZOLE 40 MG VIAL IV SCH ×2 (08:44→21:19)
[2019-06-09] MEDS: HYDROGEL DRESSING 90 GM TUBE TP SCH (08:45)
[2019-06-09] MEDS: VALACYCLOVIR HCL 500 MG TABLET PO SCH (08:47)
[2019-06-09 10:49] LABS: BASOPHILS % (AUTO) 0.4 % (0.0-2.0); EOSINOPHILS % (AUTO) 8.9 % (0.0-6.0); HEMATOCRIT 25 % (33-45); HEMOGLOBIN 7.8 g/dL (11.5-14.8); LYMPHOCYTES # (AUTO) 1.1 /CMM (0.8-4.8); LYMPHOCYTES % (AUTO) 22.5 % (20.0-44.0); MEAN CORPUSCULAR HGB CONC 31 g/dl (31.0-36.0); MEAN CORPUSCULAR VOLUME 96 fL (82-100); MONOCYTES # (AUTO) 0.5 /CMM (0.1-1.30); MONOCYTES % (AUTO) 10.2 % (2.0-12.0); PLATELET COUNT (AUTO) 166 /CMM (150-450); RED BLOOD CELL COUNT(AUTO) 2.65 MIL/uL (4.0-5.2); WHITE BLOOD COUNT (AUTO) 5.1 K/uL (4.3-11.0)
[2019-06-09] MEDS: diphenhydrAMINE HCL 50 MG/ML VIAL IV PRN (11:45)
--- NOTE | 2019-06-09 14:17 | NUR ---
RN NOTES PATIENT IS ALERT BUT HAS EPISODES OF CONFUSION. PER MD, PT MATTRESS HAS BEEN CHANGED FROM [employer] AIR MATTRESS TO ISOFLEX MATTRESS, WILL CONTINUE TO MONITOR FOR ANY CHANGES.
--- NOTE | 2019-06-09 18:47 | NUR ---
RN CLOSING NOTE PT IS ASLEEP IN BED WITH HOB ELEVATED. ON NC 4L TOLERATING WELL. APPEARS CALM & RELAXED. NO SIGNS OF DISTRESS. TELE READING SINUS RHYTHM 98 BPM. STILL NOTED WITH BUE EDEMA. PICC LINE ON R FEMORAL INTACT AND PATENT. DANIELLE & PERNELL FISTULA PATENT. SAFETY MEASURES IMPLEMENTED. CALL LIGHT WITHIN REACH. BED ON LOWEST & LOCKED POSITION. WILL ENDORSE TO THE NIGHT NURSE.
--- NOTE | 2019-06-09 19:30 | NUR ---
RN CLOSING NOTE ENDORSED TO DOT NET ARCHITECT NURSE FOR DANNA.
--- NOTE | 2019-06-09 19:30 | NUR ---
RN OPENING NOTES RECEIVED PATIENT AWAKE IN BED. A/O X1-2. NO SIGNS OF DISTRESS OR DISCOMFORT. BREATHING EVEN AND UNLABORED. ON 4LPM O2 VIA NC. HAS R FEMORAL PICC PATENT AND INTACT. HAS DANIELLE AND PERNELL FISTULA WITH BRUIT AND THRILL PRESENT. BED IN LOW LOCKED POSITION WITH SIDE RAILS X2. HOB ELEVATED. CALL LIGHT WITHIN REACH. WILL CONTINUE TO MONITOR.
[2019-06-10] VITALS (7 sets, daily range): BP systolic 127–164; BP diastolic 48–79
[2019-06-10] MEDS: METOCLOPRAMIDE HCL 10 MG/10 ML UDC PO SCH ×4 (00:11→17:37)
--- NOTE | 2019-06-10 06:43 | NUR ---
RN CLOSING NOTES PATIENT RESTING IN BED, EASILY AROUSABLE. A/O X1-2. NO SIGNS OF DISTRESS OR DISCOMFORT. BREATHING EVEN AND UNLABORED. ON 4LPM O2 VIA NC. ON TELE MONITORING WITH ST 108 NOTED. HAS R FEMORAL PICC PATENT AND INTACT. HAS DANIELLE AND PERNELL FISTULA WITH BRUIT AND THRILL PRESENT. ALL NEEDS MET. NO SIGNIFICANT CHANGES THROUGH THE NIGHT. REPOSITIONED Q2H. BED IN LOW LOCKED POSITION WITH SIDE RAILS X2. HOB ELEVATED. CALL LIGHT WITHIN REACH. WILL ENDORSE TO AM SHIFT FOR DANNA.
--- NOTE | 2019-06-10 07:46 | NUR ---
RN OPENING NOTES RECEIVED PATIENT IN BED,AWAKE, A/O X2. VERBALLY RESPONSIVE , ABLE TO STATE NAME. DENIES ANY PAIN OR DISCOMFORT AT THE MOMENT. IV ACCESS ON R FEMORAL PICC LINE INTACT, PATENT AND FLUSHED WELL. NO SIGNS OF INFILTRATION. AVF ON DANIELLE AND PERNELL, NO SIGNS OF BLEEDING NOTED. NOTED OF BED PADS ON BOTH SIDES, SAFETY MEASURES APPLIED. CALL LIGHT WITHIN REACH. WILL CONTINUE TO MONITOR.
--- NOTE | 2019-06-10 09:42 | NUR ---
RN NOTES CALLED PHARMACY AND SPOKE WITH HAROLDO REGARDING THE [facility] THAT IT'S NOT AVAILABLE ON THE [facility] AND NOT PRESENT ON THE CASSETTE. PER HAROLDO HE WILL SEND IT OUT. AWAITING FOR DELIVERY Addendum: 06/10/19 at 1014 by EMMY LEAHY RN SPOKE WITH ALEK TO MAKE FOLLOW UP WITH THE [facility], AWAITING FOR DELIVERY
[2019-06-10] MEDS: PANTOPRAZOLE 40 MG VIAL IV SCH ×2 (09:50→21:43)
[2019-06-10] MEDS: HYDROGEL DRESSING 90 GM TUBE TP SCH (09:51)
[2019-06-10] MEDS: VALACYCLOVIR HCL 500 MG TABLET PO SCH (10:20)
[2019-06-10] MEDS: MORPHINE SULFATE INJ 2 MG/ML DISP.SYRIN IV PRN (11:07)
[2019-06-10] MEDS: ALBUMIN 25% 25 GM in PREMIX 1 EA IV PRN (16:19)
--- NOTE | 2019-06-10 18:10 | NUR ---
RN NOTES PATIENT'S SISTER (SANDRA) SIGNED THE DEBRIDEMENT CONSENT BUT ACCORDING TO HER, JUST HOLD ON THE CONSENT FOR NOW BECAUSE SHE WILL RETHINK IT TONIGHT AND MIGHT CHANGE HER MIND IN THE MORNING.
--- NOTE | 2019-06-10 19:35 | NUR ---
RN OPENING NOTE PATIENT IN BED, ASLEEP, WITH SIDE RAILS UP X 2, PT IN NO APPARENT DISTRESS, ON 4 LITERS VIA NC, RIGHT FEMORAL PICC PATENT, INTACT AND FLUSHING WELL. SAFETY MEASURES IN PLACE, CALL LIGHT WITHIN REACH, WILL CONTINUE TO MONITOR
--- NOTE | 2019-06-10 19:40 | NUR ---
RN CLOSING NOTES PATIENT IN BED,ASLEEP, RESTING COMFORTABLY.IN NO APPARENT DISTRESS NOTED. HAD HD TODAY, TOLERATED WELL, AND 2L WAS THE OUTPUT KEPT CLEAN AND DRY. ALL NEEDS MET AND ATTENDED. SAFETY MEASURES IN PLACED, CALL LIGHT WITHIN REACHED. ENDORSED TO PM RN FOR DANNA
[2019-06-11] VITALS (14 sets, daily range): BP systolic 115–157; BP diastolic 38–77
[2019-06-11] MEDS: METOCLOPRAMIDE HCL 10 MG/10 ML UDC PO SCH ×4 (00:21→17:25)
[2019-06-11 07:14] LABS: BASOPHILS # (AUTO) 0.1 /CMM (0.0-0.2); EOSINOPHILS % (AUTO) 7.8 % (0.0-6.0); HEMATOCRIT 22 % (33-45); LYMPHOCYTES # (AUTO) 1.4 /CMM (0.8-4.8); LYMPHOCYTES % (AUTO) 25.7 % (20.0-44.0); MEAN CORPUSCULAR HGB CONC 31 g/dl (31.0-36.0); MEAN CORPUSCULAR VOLUME 96 fL (82-100); MONOCYTES # (AUTO) 0.6 /CMM (0.1-1.30); MONOCYTES % (AUTO) 11.2 % (2.0-12.0); NEUTROPHILS # (AUTO) 2.9 /CMM (1.8-8.9); NEUTROPHILS % (AUTO) 53.3 % (43.0-81.0); PLATELET COUNT (AUTO) 182 /CMM (150-450); RED BLOOD CELL COUNT(AUTO) 2.25 MIL/uL (4.0-5.2); WHITE BLOOD COUNT (AUTO) 5.4 K/uL (4.3-11.0)
--- NOTE | 2019-06-11 07:16 | NUR ---
RN CLOSING NOTE PATIENT IN BED, AWAKE WITH SIDE RAILS UP X 2, PT IN NO APPARENT DISTRESS, ON 4 LITERS VIA NC, RIGHT FEMORAL PICC PATENT, INTACT AND FLUSHING WELL, PT REPOSITIONED AND TURNED EVERY [address] S[address]ETY MEASURES IN PLACE, CALL LIGHT WITHIN REACH, WILL ENDORSE TO AM NURSE DANNA
[2019-06-11 07:38] LABS: HEMOGLOBIN 6.7 g/dL (11.5-14.8)
[2019-06-11 07:44] LABS: CALCIUM, SERUM 8.6 mg/dL (8.5-10.1); CREATININE 5.6 mg/dL (0.6-1.3); PHOSPHORUS 4.3 mg/dL (2.5-4.9); POTASSIUM 4.8 mmol/L (3.5-5.1)
[2019-06-11 08:02] LABS: BAND % (MANUAL) 4 % (0.0-5.0); NEUTROPHILS % (MANUAL) 57 (42-76)
[2019-06-11 08:03] LABS: EOSINOPHILS % (MANUAL) 7 % (0-4); LYMPHOCYTES % (MANUAL) 21 % (16-48); MONOCYTES % (MANUAL) 11 % (0-11.0)
[2019-06-11 08:26] LABS: MAGNESIUM 2.2 mg/dL (1.8-2.4)
[2019-06-11] MEDS: PANTOPRAZOLE 40 MG VIAL IV SCH ×2 (08:40→21:23)
[2019-06-11] MEDS: HYDROGEL DRESSING 90 GM TUBE TP SCH (08:41)
[2019-06-11] MEDS: VALACYCLOVIR HCL 500 MG TABLET PO SCH (08:41)
--- NOTE | 2019-06-11 09:45 | NUR ---
RN OPENING NOTE: GOT ENDORSEMENT FROM SHERI ALLEN FOR CONTINUITY OF CARE D/T ASSIGNMENT CHANGE. PATIENT IS CURRENTLY RESTING IN BED. NO SIGNS OF RESPIRATORY DISTRESS NOTED. NO SIGNS OF ACUTE DISTRESS NOTED. PICC LINE TRIPLE LUMEN ON RIGHT FEMORAL, FLUSHING WELL, SITE C/D/I, NO SIGNS OF COMPLICATION NOTED. SAFETY MEASURES IMPLEMENTED, BED IN LOWEST POSITION, LOCKED, SIDE RAILS UP X3, CALL LIGHT WITHIN REACH. WILL CONTINUE TO MONITOR PATIENT.
--- NOTE | 2019-06-11 10:00 | NUR ---
AISLINN SAHNI AWARE OF PATIENT'S HGB OF 6.7, ORDERS FOR 1 UNIT PRBC.
[2019-06-11] MEDS: ACETAMINOPHEN 650 MG/20.3 ML UDC PO PRN (14:49)
--- NOTE | 2019-06-11 17:57 | NUR ---
AISLINN SAHNI AWARE OF PATIENT'S DVT IN RIGHT SUBCLAVIAN, RIGHT AXILLARY AND LEFT SUBCLAVIAN. STATES THAT WE CANNOT START ANTICOAGULATION YET D/T ANEMIA.
--- NOTE | 2019-06-11 19:30 | NUR ---
RN NOTES, PATIENT IS CURRENTLY SLEEPING IN BED, BUT AROUSES TO TACTILE STIMULI, AT 4LPM VIA NV, NO SOB/ACUTE RESPIRATORY DISTRESS NOTED AT THIS TIME, SISTER AT BEDSIDE, NO SIGNS OF ACUTE DISTRESS NOTED, NSR IN THE TELE MONITOR, RIGHT FEMORAL PICC LINE IN PLACED, PATENT AND INTACT, ALL SAFETY MEASURES IMPLEMENTED, BED LOCKED, AND LOWEST POSITION, SIDE RAILS UP X3, CALL LIGHT WITHIN REACH, CALL LIGHT W/REACH, WILL CONTINUE TO MONITOR CLOSELY.
--- NOTE | 2019-06-11 19:38 | NUR ---
RN OPENING NOTE: PATIENT IS CURRENTLY RESTING IN BED. NO SIGNS OF RESPIRATORY DISTRESS NOTED. NO SIGNS OF ACUTE DISTRESS NOTED. SAFETY MEASURES IMPLEMENTED, BED IN LOWEST POSITION, LOCKED, SIDE RAILS UP X3, CALL LIGHT WITHIN REACH. ENDORSED TO ONCOMING RN FOR CONTINUITY OF CARE.
[2019-06-11 19:48] LABS: BASOPHILS # (AUTO) 0.1 /CMM (0.0-0.2); BASOPHILS % (AUTO) 1.1 % (0.0-2.0); EOSINOPHILS % (AUTO) 8.9 % (0.0-6.0); HEMATOCRIT 25 % (33-45); HEMOGLOBIN 8.1 g/dL (11.5-14.8); LYMPHOCYTES # (AUTO) 1.3 /CMM (0.8-4.8); LYMPHOCYTES % (AUTO) 22.4 % (20.0-44.0); MEAN CORPUSCULAR HGB CONC 32 g/dl (31.0-36.0); MEAN CORPUSCULAR VOLUME 95 fL (82-100); MONOCYTES # (AUTO) 0.6 /CMM (0.1-1.30); MONOCYTES % (AUTO) 10.6 % (2.0-12.0); NEUTROPHILS # (AUTO) 3.2 /CMM (1.8-8.9); PLATELET COUNT (AUTO) 185 /CMM (150-450); RED BLOOD CELL COUNT(AUTO) 2.67 MIL/uL (4.0-5.2); WHITE BLOOD COUNT (AUTO) 5.6 K/uL (4.3-11.0)
[2019-06-12] VITALS: BP 137/77
[2019-06-12] MEDS: METOCLOPRAMIDE HCL 10 MG/10 ML UDC PO SCH ×4 (00:11→18:15)
[2019-06-12 04:00] VITALS: BP 151/64
[2019-06-12 06:31] LABS: BASOPHILS # (AUTO) 0.1 /CMM (0.0-0.2); BASOPHILS % (AUTO) 1.1 % (0.0-2.0); EOSINOPHILS % (AUTO) 8.3 % (0.0-6.0); HEMATOCRIT 25 % (33-45); HEMOGLOBIN 8.3 g/dL (11.5-14.8); LYMPHOCYTES # (AUTO) 1.1 /CMM (0.8-4.8); LYMPHOCYTES % (AUTO) 22.2 % (20.0-44.0); MEAN CORPUSCULAR HGB CONC 33 g/dl (31.0-36.0); MEAN CORPUSCULAR VOLUME 94 fL (82-100); MONOCYTES # (AUTO) 0.6 /CMM (0.1-1.30); MONOCYTES % (AUTO) 12.4 % (2.0-12.0); NEUTROPHILS # (AUTO) 2.9 /CMM (1.8-8.9); PLATELET COUNT (AUTO) 191 /CMM (150-450); RED BLOOD CELL COUNT(AUTO) 2.69 MIL/uL (4.0-5.2); WHITE BLOOD COUNT (AUTO) 5.1 K/uL (4.3-11.0)
[2019-06-12 06:51] LABS: CALCIUM, SERUM 8.6 mg/dL (8.5-10.1); CREATININE 6.4 mg/dL (0.6-1.3); MAGNESIUM 2.2 mg/dL (1.8-2.4); PHOSPHORUS 4.8 mg/dL (2.5-4.9); POTASSIUM 4.9 mmol/L (3.5-5.1)
--- NOTE | 2019-06-12 07:00 | NUR ---
RN TELE1 PATIENT IS RESTING COMFORTABLELY IN BEEN PATIENT IS EASILY AROUSE TO TACTILE STIMULI. PATIENT IS ON OXYGEN @ 4LMP VIA NC . NO SOB , NO ACUTE RESPIRATORY DISTRESS AT THIS TIME. PATIENT IS ON TELE MONITOR WITH SR. 90'S . RIGHT FEMORAL PICC LINE IN PLACE PATENT AND INTACT. NO SIGNS OF INFILTRATION OR DISCOMFORT AT THIS TIME BED LOCKED AND LOWEST POSITION CALL LIGHT WITH IN REACH ALL SAFETY MEASURE IMPLACED , 2 X RAILS UP.
--- NOTE | 2019-06-12 07:10 | NUR ---
RN NOTES, NO SIGNIFICANT CHANGE IN CONDITION DURING THE NIGHT, WILL ENDORSE CONTINUITY OF CARE TO ONCOMING NURSE.
[2019-06-12 08:00] VITALS: BP 154/80
--- NOTE | 2019-06-12 08:25 | NUR ---
RN TELE1 PATIENT REFUSED XRAY. INFROMED MULTIPLE TIMES RISK AND BENIFITS OF XRAY . PATIENT STILL REFUSED CARE
[2019-06-12 08:49] LABS: EOSINOPHILS % (MANUAL) 11 % (0-4); LYMPHOCYTES % (MANUAL) 25 % (16-48); MONOCYTES % (MANUAL) 9 % (0-11.0); NEUTROPHILS % (MANUAL) 55 (42-76)
[2019-06-12] MEDS: VALACYCLOVIR HCL 500 MG TABLET PO SCH ×2 (09:00→09:15)
[2019-06-12] MEDS: PANTOPRAZOLE 40 MG VIAL IV SCH ×3 (09:00→21:07)
[2019-06-12] MEDS: HYDROGEL DRESSING 90 GM TUBE TP SCH (09:15)
--- NOTE | 2019-06-12 09:31 | NUR ---
COMMUNITY PLANNER 1 PATIENT REFUSEDING HER MEDICATION. STATE " I WILL NOT RECIVEVE MEDICATION FROM A NON PRACTICING PROSTHETIST. PATIENT WAS INFORMED THAT NURSE IS A NURSE NOT AN PROSTHETIST. PATIENT WAS EXPLAINED RISK AND BENEFITS. SEEMS THAT PATIENT MIGHT BE CONFUSED. A/O X2 BUT IS UNAWARE OF HER SURROUNDINGS. ATTEMPTED 3X TIMES MEDICATION. PATIENT REFUSED. 3 TIMES
[2019-06-12 12:00] VITALS: BP 154/80
--- NOTE | 2019-06-12 14:19 | NUR ---
STARTED HEPARIN DRIP AT 1250 UNITS/HR.
[2019-06-12] MEDS: HEPARIN INFUSION/D5W 500 ML IV PRN (14:20)
--- NOTE | 2019-06-12 14:20 | NUR ---
ASSISTANT TECHNICIAN PATIENT INFORMED ABOUT HEPRIN DRIP PTT LEVELS AND EDUCATION ABOUT HOSPITAL PROTOCOL
[2019-06-12 16:00] VITALS: BP 133/68
[2019-06-12] MEDS ORDERED: [UNRECOGNIZED DRUG - CODE] IV (16:25)
[2019-06-12] MEDS ORDERED: VALA500T PO (16:25)
--- NOTE | 2019-06-12 18:00 | NUR ---
FITTING ROOM INSPECTOR NOTIIFIED DIALYSIS NURSE .PATIENT IS ON HEPRIN DRIP. DIALYSIS NURSE SAID ITS OKAY TURN IT OFF WHILE I AM DOING DIALYSIS .
--- NOTE | 2019-06-12 19:30 | NUR ---
PIZZA CHEF NO SIGIFICANT CHANGE IN PATIENT CONDITION ENSORDER TO PM SHIFT. BED LOCKED AND LOWEST POSITION CALL LIGHT WITH IN REACH ALL SAFETY MEASURE IMPLEMENTED PERHOSPITAL POLICY PATIENT STARTED ON HEPRIN DRIP ORDER FOR PTT 2019. PATIENT ON DIALYSIS. DISCHARGE PAPERS COMPLETED. PATIENT FAMILY NEEDS TO SIGN PAPER WORK
[2019-06-12] MEDS: ALBUMIN 25% 25 GM in PREMIX 1 EA IV PRN (19:38)
--- NOTE | 2019-06-12 19:40 | NUR ---
RN NOTES, PATIENT IS CURRENTLY SLEEPING IN BED, FALLING ASLEEP, BUT AROUSES TO TACTILE STIMULI, NO SOB/ACUTE RESPIRATORY DISTRESS NOTED AT THIS TIME, SISTER AT BEDSIDE, NSR IN THE TELE MONITOR, RIGHT FEMORAL PICC LINE IN PLACED, PATENT AND INTACT, PATIENT CURRENTLY ON HD, TOLERATED WELL, PATIENT IN HEPARIN DRIP FRO DVT IN BUE, PER NURSE HEPARIN DRIP WAS TURNED OFF PRIOR TO HD, WILL F/U WITH MD FOR PROPER TIME TO START HEPARIN DRIP AGAIN CONTACTED ALEK FROM PHARMACY FOR RECOMMENDATION TO START HEPARIN DRIP AND HE COULDN'T ANSWER MY QUESTION, HE SUGGESTED TO VERIFY WITH MD, AND DRAW PT/PTT, ALL SAFETY MEASURES IMPLEMENTED, BED LOCKED, AND LOWEST POSITION, SIDE RAILS UP X3, CALL LIGHT WITHIN REACH, WILL CONTINUE TO MONITOR CLOSELY.
[2019-06-12 20:00] VITALS: BP 136/53
--- NOTE | 2019-06-12 20:20 | NUR ---
RN NOTES, CONTACTED DR CHEN TO ADVICE WHAT TIME IS PROPER TO START HEPARIN DRIP AFTER HD, AND WHAT TIME TO DRAW PT/PTT, SINCE PATIENT HAD PT/PTT SCHEDULE AT THIS TIME, PER MD TO START HEPARIN DRIP AFTER HD DONE AND CHECK PT/PTT AFTER 6HRS, NOTED AND CARRIED OUT.
--- NOTE | 2019-06-12 21:00 | NUR ---
RN NOTES, HEMODIALYSIS DONE AT THIS TIME WITH 2L OUT, BLOOD PRESSURE AT THIS TIME, 109/53, HR 99, PATIENT TOLERATED WELL, AWAKE A/O AND RESPONSIVE, NO CHANGE IN LOC, WILL CONTINUE TO MONITOR CLOSELY, STARTED HEPARIN IV DRIP AND F/U WITH LAB TO DRAW BLOOD FOR PT/PTT IN 6HRS DR CHEN ORDERED, WILL CONT TO MONITOR CLOSELY FOR S/S OF BLEEDING.
[2019-06-13] VITALS (7 sets, daily range): BP systolic 135–178; BP diastolic 37–72
[2019-06-13] MEDS: METOCLOPRAMIDE HCL 10 MG/10 ML UDC PO SCH ×4 (00:26→17:08)
[2019-06-13 03:08] LABS: BASOPHILS # (AUTO) 0.1 /CMM (0.0-0.2); BASOPHILS % (AUTO) 1.1 % (0.0-2.0); EOSINOPHILS % (AUTO) 9.7 % (0.0-6.0); HEMATOCRIT 27 % (33-45); HEMOGLOBIN 8.2 g/dL (11.5-14.8); LYMPHOCYTES % (AUTO) 22.8 % (20.0-44.0); MEAN CORPUSCULAR HGB CONC 31 g/dl (31.0-36.0); MEAN CORPUSCULAR VOLUME 95 fL (82-100); MONOCYTES # (AUTO) 0.6 /CMM (0.1-1.30); MONOCYTES % (AUTO) 13.4 % (2.0-12.0); NEUTROPHILS # (AUTO) 2.4 /CMM (1.8-8.9); PLATELET COUNT (AUTO) 195 /CMM (150-450); RED BLOOD CELL COUNT(AUTO) 2.79 MIL/uL (4.0-5.2); WHITE BLOOD COUNT (AUTO) 4.5 K/uL (4.3-11.0)
--- NOTE | 2019-06-13 03:20 | NUR ---
RN NOTES, ACCORDING TO PTT RESULTS 63.3, NO CHANGE IN HEPARIN DRIP PER PROTOCOL, WILL CONTINUE WITH 1250 UNIT/KG, AND LABS WILL BE DONE AGAIN TOMORROW MORNING, WILL CONTINUE TO MONITOR CLOSELY.
[2019-06-13 03:22] LABS: CALCIUM, SERUM 8.9 mg/dL (8.5-10.1); CREATININE 5.2 mg/dL (0.6-1.3); MAGNESIUM 2.1 mg/dL (1.8-2.4); PHOSPHORUS 4.2 mg/dL (2.5-4.9); POTASSIUM 4.7 mmol/L (3.5-5.1)
[2019-06-13] MEDS ORDERED: HEPARIN SODIUM,PORCINE/PF 50 UNIT/5 ML DISP.SYRIN IV ONE (04:00)
--- NOTE | 2019-06-13 07:00 | NUR ---
RN NOTES, PATIENT AWAKE AT THIS TIME, A/O TO SELF, NO SOB/ACUTE DISTRESS NOTED, NO C/O PAIN OR DISCOMFORT, ON HEPARIN DRIP INFUSING AT 1250 U/HR VIA RIGHT FEMORAL PICC LINE, NO S/S OF BLEEDING NOTED, WILL HAVE PTT TOMORROW MORNING SINCE THERE WAS NO CHANGE IN DOSE, NO SIGNIFICANT CHANGE DURING THE NIGHT, WILL ENDORSE CONTINUITY OF CARE TO ONCOMING NURSE.
[2019-06-13 07:12] LABS: CANCER AG, 15-3 20.4 U/mL (0.0-25.0)
[2019-06-13] MEDS: PANTOPRAZOLE 40 MG VIAL IV SCH ×2 (08:19→21:27)
[2019-06-13] MEDS: VALACYCLOVIR HCL 500 MG TABLET PO SCH (08:20)
[2019-06-13] MEDS: hydrALAZINE HCL IV 20 MG VIAL IV PRN (08:21)
[2019-06-13] MEDS: HYDROGEL DRESSING 90 GM TUBE TP SCH (08:37)
--- NOTE | 2019-06-13 08:46 | NUR ---
RN OPENING NOTE: RECEIVED PATIENT RESTING IN BED THIS MORNING. NO SIGNS OF RESPIRATORY DISTRESS NOTED. NO SIGNS OF ACUTE DISTRESS NOTED. PICC LINE TRIPLE LUMEN ON RIGHT FEMORAL, FLUSHING WELL, SITE C/D/I, NO SIGNS OF COMPLICATION NOTED. PATIENT IS ON HEPARIN DRIP THAT STARTED AGAIN IN THE PROPERTY AND CASUALTY INSURANCE AGENT PER SHERI GAMEZ (PATTERN CHANGER NURSE), PATIENT IS CURRENTLY ON 1250 UNITS/HR OF HEPARIN FOR MOST RECENT APTT OF 63.3, 67KG, PT 12.4, INR 1.24, PLATELETS 195, HCT 27, HGB 8.2, WILL CONTINUE WITH SAME DOSE PER HEPARIN INFUSION PROTOCOL AND MONITOR PATIENT FOR BLEEDING. SAFETY MEASURES IMPLEMENTED, BED IN LOWEST POSITION, LOCKED, SIDE RAILS UP X3, CALL LIGHT WITHIN REACH. WILL CONTINUE TO MONITOR PATIENT.
[2019-06-13] MEDS: HEPARIN INFUSION/D5W 500 ML IV PRN (16:14)
[2019-06-13] MEDS: MORPHINE SULFATE INJ 2 MG/ML DISP.SYRIN IV PRN (16:40)
--- NOTE | 2019-06-13 18:19 | NUR ---
RN CLOSING NOTE: PATIENT IS CURRENTLY RESTING IN BED WITH SISTER (SANDRA) AT BEDSIDE. NO SIGNS OF RESPIRATORY DISTRESS NOTED. NO SIGNS OF ACUTE DISTRESS NOTED. PATIENT IS ON HEPARIN DRIP, NO SIGNS OF BLEEDING NOTED. SAFETY MEASURES IMPLEMENTED, BED IN LOWEST POSITION, LOCKED, SIDE RAILS UP X3, CALL LIGHT WITHIN REACH. WILL ENDORSE TO ONCOMING SHIFT RN FOR CONTINUITY OF CARE.
[2019-06-14] MEDS: METOCLOPRAMIDE HCL 10 MG/10 ML UDC PO SCH ×5 (00:30→17:06)
[2019-06-14 04:00] VITALS: BP 140/50
[2019-06-14 04:16] LABS: BASOPHILS # (AUTO) 0.1 /CMM (0.0-0.2); BASOPHILS % (AUTO) 2.2 % (0.0-2.0); EOSINOPHILS % (AUTO) 8.5 % (0.0-6.0); HEMATOCRIT 27 % (33-45); HEMOGLOBIN 8.3 g/dL (11.5-14.8); LYMPHOCYTES # (AUTO) 1.3 /CMM (0.8-4.8); LYMPHOCYTES % (AUTO) 27.5 % (20.0-44.0); MEAN CORPUSCULAR HGB CONC 31 g/dl (31.0-36.0); MEAN CORPUSCULAR VOLUME 96 fL (82-100); MONOCYTES # (AUTO) 0.7 /CMM (0.1-1.30); NEUTROPHILS # (AUTO) 2.3 /CMM (1.8-8.9); NEUTROPHILS % (AUTO) 47.8 % (43.0-81.0); PLATELET COUNT (AUTO) 194 /CMM (150-450); RED BLOOD CELL COUNT(AUTO) 2.75 MIL/uL (4.0-5.2); WHITE BLOOD COUNT (AUTO) 4.7 K/uL (4.3-11.0)
[2019-06-14 04:30] LABS: CALCIUM, SERUM 8.5 mg/dL (8.5-10.1); CREATININE 5.7 mg/dL (0.6-1.3); MAGNESIUM 1.9 mg/dL (1.8-2.4); PHOSPHORUS 5.1 mg/dL (2.5-4.9)
--- NOTE | 2019-06-14 05:50 | NUR ---
MS RN NOTES PTT 174.6. PAGED DR CHEN COMMUNITY SERVICES COORDINATOR FOR [facility]. AWAITING FOR RESPONSE. WILL CONTINUE TO MONITOR.
--- NOTE | 2019-06-14 06:15 | NUR ---
MS RN NOTES DR CHEN NOTIFIED RE PTT RESULTS. WITH ORDERS FOR PHARMACY TO ADJUST HEPARIN DOSE. ORDERS NOTED AND CARRIED OUT. NOTIFIED RN SUP FOR DAIRY EQUIPMENT SPECIALIST PHARMACIST DOSE ADJUSTMENT FOR HEPARIN DRIP.
[2019-06-14] MEDS ORDERED: DOSE PER PHARMACY (MD SPECIFY MEDICATION) 1 EA IV PRN (06:30)
--- NOTE | 2019-06-14 06:41 | NUR ---
MS RN NOTES AWAKE & ALERT. NOT IN ANY DISTRESS. NO SOB NOTED. DENIES ANY PAIN OR DISCOMFORT AT THIS TIME. WITH PICC LINE PATENT & INTACT. AM CARE DONE. MONITORED ACCORDINGLY. CALL LIGHT WITHIN REACH. BED IN LOWEST POSITION. SR UP X 3 WITH BED ALARM ON FOR SAFETY. WILL ENDORSE TO NEXT SHIFT.
--- NOTE | 2019-06-14 06:42 | NUR ---
MS RN NOTES NRSG SUP CALLED. PER GRINDER OPERATOR EXTERNAL TOOL PHARMACIST HOLD HEPARIN DRIP FOR AN HOUR AND WAIT FOR AM PHARMACIST TO ADJUST HEPARIN DOSE. ORDERS NOTED AND CARRIED OUT. WILL CONTINUE TO MONITOR.
--- NOTE | 2019-06-14 07:09 | NUR ---
GOT SHIFT REPORT FROM PACKAGING SPECIALIST RN. 0400 APTT RESULTED 174.6 AND HEPARIN WAS HELD AT 0400. CONTACTED RX AND WAS INFORMED TO KEEP HOLDING THE DOSE AND WAIT FOR NEW DOSE ORDERS. Addendum: 06/14/19 at 0717 by JULIO HARLEY RN PER RX, HOLD DOSE FOR 2 HOURS, RESTART HEPARIN AT 0800. ORDERS TO START PATIENT OFF WITH 950 UNITS/HR AND TO REPEAT LABS IN 6 HOURS.
--- NOTE | 2019-06-14 07:30 | NUR ---
RN OPENING NOTE: RECEIVED PATIENT RESTING IN BED THIS MORNING. NO SIGNS OF RESPIRATORY DISTRESS NOTED. NO SIGNS OF ACUTE DISTRESS NOTED. PICC LINE TRIPLE LUMEN ON RIGHT FEMORAL, FLUSHING WELL, SITE C/D/I, NO SIGNS OF COMPLICATION NOTED. HEPARIN DRIP HELD UNTIL 0800. TO RESTART AT 0800 WITH 950 UNITS/HR. APTT 174.6 PT 12.4 INR 1.24 PLATELETS 194 HCT 27 HGB 8.3. NO SIGNS OF BLEEDING NOTED, WILL CONTINUE TO MONITOR. SAFETY MEASURES IMPLEMENTED, BED IN LOWEST POSITION, LOCKED, SIDE RAILS UP X3, CALL LIGHT WITHIN REACH. WILL CONTINUE TO MONITOR PATIENT.
[2019-06-14 08:00] VITALS: BP 154/89
[2019-06-14] MEDS: VALACYCLOVIR HCL 500 MG TABLET PO SCH (08:00)
[2019-06-14] MEDS: HYDROGEL DRESSING 90 GM TUBE TP SCH (08:00)
[2019-06-14] MEDS: PANTOPRAZOLE 40 MG VIAL IV SCH ×2 (08:00→20:50)
--- NOTE | 2019-06-14 08:00 | NUR ---
PATIENT'S HEPARIN DRIP RESTARTED AT 950 UNITS /HR PER RX RECOMMENDATION. CN AWARE. NO SIGNS OF BLEEDING NOTE. INPUT ORDER FOR REPEAT LABS AT 1400. WILL CONTINUE TO MONITOR.
[2019-06-14] MEDS: APIXABAN 2.5 MG TABLET PO SCH ×3 (10:30→17:00)
[2019-06-14 10:41] VITALS: BP 154/89
--- NOTE | 2019-06-14 12:39 | NUR ---
HEPARIN DC PER DR AUSTIN, PATIENT CURRENTLY RECEIVING HD. PER CN, CONTINUE GIVING HEPARIN WHILE RECEIVING HD AND HOLD ELIQUIS UNTIL AFTER HD. ONCE HD IS COMPLETE, DC HEPARIN AND ADMINISTER ELIQUIS A LATE DOSE. Addendum: 06/14/19 at 1251 by JULIO HARLEY RN PER DIALYSIS NURSE, HOLD ELIQUIS FOR ABOUT 30 MINUTES POST HD.
--- NOTE | 2019-06-14 14:11 | NUR ---
PATIENT REFUSED ELIQUIS. SPIT OUT MEDICATION AND TOLD ME TO DO A 180 AND LEAVE THE ROOM. INFORMED DR AUSTIN AND ORDERED ME TO KEEP TRYING. WILL ATTEMPT ADMINISTERING MEDICATION AGAIN.
[2019-06-14 16:00] VITALS: BP 112/49
--- NOTE | 2019-06-14 16:35 | NUR ---
PATIENT IS CONTINUING TO REFUSE CARE FOR HER MEDICAL NEEDS. SHE IS REFUSING TO BE CLEANED, TURNED, WOUND CARE AND IS REFUSING HER MEDICATIONS INCLUDING ELIQUIS. Addendum: 06/14/19 at 1643 by JULIO HARLEY RN PATIENT IS REFUSING CARE/ MEDICATION ADMINISTRATION AFTER MULTIPLE ATTEMPTS Addendum: 06/14/19 at 1736 by JULIO HARLEY RN MD CLYDE JENNINGS.
[2019-06-14 17:42] VITALS: BP 112/49
--- NOTE | 2019-06-14 18:40 | NUR ---
RN CLOSING NOTE: PATIENT IS CURRENTLY RESTING IN BED WITH SISTER (SANDRA) AT BEDSIDE. NO SIGNS OF RESPIRATORY DISTRESS NOTED. NO SIGNS OF ACUTE DISTRESS NOTED. SAFETY MEASURES IMPLEMENTED, BED IN LOWEST POSITION, LOCKED, SIDE RAILS UP X4 D/T SEIZURE PRECAUTIONS, CALL LIGHT WITHIN REACH. WILL ENDORSE TO ONCOMING SHIFT RN FOR CONTINUITY OF CARE.
--- NOTE | 2019-06-14 19:15 | NUR ---
RN NOTES PATIENT IS SLEEPING IN BED, BUT EASY TO AROUSE VERBALLY. TOLERATING OXYGEN VIA NC WELL, NO SIGNS OF RESPIRATORY DISTRESS NOTED. DENIES ANY PAIN. IV SITE RIGHT FEM TRIPLE LUMEN CATH, FLUSHING AND PATENT, SITE C/D/I. SAFETY MEASURES IN PLACE; CL WITHIN REACH, BED IN LOWEST AND LOCKED POSITION, SIDE RAILS UP X4 D/T SEIZURE PRECAUTIONS, CALL LIGHT WITHIN REACH. WILL CONT TO MONITOR CLOSELY.
[2019-06-14 20:00] VITALS: BP 100/55
--- NOTE | 2019-06-14 20:10 | NUR ---
RN NOTES REPORT GIVEN TO SHERI VIDES FOR DANNA.
--- NOTE | 2019-06-14 20:15 | NUR ---
RN OPENING NOTE RECEIVED PT PATIENT IN BED AWAKE A/O X 2, NO SIGNS OF RESPIRATORY DISTRESS NOTED. RIGHT FEMORAL PICC LINE TRIPLE LUMEN INTACT AND FLUSHING WELL, SAFETY MEASURES IMPLEMENTED, BED IN LOWEST POSITION, LOCKED, SIDE RAILS UP, CALL LIGHT WITHIN REACH. WILL CONTINUE TO MONITOR PT
[2019-06-14] MEDS: HEPARIN SODIUM, PORCINE 5000 UNITS/1 ML VIAL SQ SCH (20:52)
[2019-06-15] MEDS: METOCLOPRAMIDE HCL 10 MG/10 ML UDC PO SCH ×5 (00:04→23:53)
[2019-06-15 04:00] VITALS: BP_SYST 114; BP_SYST 122; BP_DIAS 59; BP_DIAS 61
[2019-06-15 07:11] LABS: BASOPHILS % (AUTO) 0.9 % (0.0-2.0); EOSINOPHILS % (AUTO) 12.1 % (0.0-6.0); HEMATOCRIT 26 % (33-45); LYMPHOCYTES % (AUTO) 20.3 % (20.0-44.0); MEAN CORPUSCULAR HGB CONC 32 g/dl (31.0-36.0); MEAN CORPUSCULAR VOLUME 97 fL (82-100); MONOCYTES # (AUTO) 0.6 /CMM (0.1-1.30); MONOCYTES % (AUTO) 10.9 % (2.0-12.0); NEUTROPHILS # (AUTO) 2.8 /CMM (1.8-8.9); NEUTROPHILS % (AUTO) 55.8 % (43.0-81.0); PLATELET COUNT (AUTO) 190 /CMM (150-450); RED BLOOD CELL COUNT(AUTO) 2.64 MIL/uL (4.0-5.2); WHITE BLOOD COUNT (AUTO) 5.1 K/uL (4.3-11.0)
--- NOTE | 2019-06-15 07:28 | NUR ---
RN CLOSING NOTE RECEIVED PT PATIENT IN BED AWAKE A/O X 2, NO SIGNS OF RESPIRATORY DISTRESS NOTED. RIGHT FEMORAL PICC LINE TRIPLE LUMEN INTACT AND FLUSHING WELL, SAFETY MEASURES IMPLEMENTED, BED IN LOWEST POSITION, LOCKED, SIDE RAILS UP, CALL LIGHT WITHIN REACH. WILL ENDORSE TO AM NURSE FOR DANNA
--- NOTE | 2019-06-15 07:29 | NUR ---
MS RN NOTES PATIENT IN BED AWAKE, A/OX2 ON MRSA NARES ISOLATION. BILATERAL UPPER EXTREMITIES DVT. NO SOB OR DISCOMFORT NOTED AT THIS TIME. DC PLANNING TO SNIF TODAY. CALL LIGHT WITHIN REACH, BED AT THE LOWEST POSITION LOCKED. WILL CONTINUE TO MONITOR THE PATIENT.
[2019-06-15 07:30] LABS: CALCIUM, SERUM 8.9 mg/dL (8.5-10.1); CREATININE 5.2 mg/dL (0.6-1.3); MAGNESIUM 2.1 mg/dL (1.8-2.4); PHOSPHORUS 4.7 mg/dL (2.5-4.9); POTASSIUM 4.6 mmol/L (3.5-5.1)
[2019-06-15 08:00] VITALS: BP 157/85
[2019-06-15 09:14] LABS: EOSINOPHILS % (MANUAL) 8 % (0-4); LYMPHOCYTES % (MANUAL) 12 % (16-48); MONOCYTES % (MANUAL) 15 % (0-11.0); NEUTROPHILS % (MANUAL) 65 (42-76)
[2019-06-15] MEDS: PANTOPRAZOLE 40 MG VIAL IV SCH ×2 (10:04→20:36)
[2019-06-15] MEDS: VALACYCLOVIR HCL 500 MG TABLET PO SCH (10:04)
[2019-06-15] MEDS: HEPARIN SODIUM, PORCINE 5000 UNITS/1 ML VIAL SQ SCH ×2 (10:04→20:38)
[2019-06-15] MEDS: HYDROGEL DRESSING 90 GM TUBE TP SCH (10:06)
--- NOTE | 2019-06-15 11:08 | NUR ---
MS RN NOTES PATIENT IS REFUSING TO TAKE THE PICTURES FOR DISCHARGE.
--- NOTE | 2019-06-15 15:00 | NUR ---
MS RN NOTES AMBULANCE CAME FOR TRANSFER. THE BLOOD PRESSURE WAS 168/64 HR 118 RR 24 AND TEMP 97.4 THE AMBULANCE DID NOT ACCEPT THE PATIENT FOR TRANSPORTATION. THEY WILL BE BACK AT 1700. PER DR AUSTIN ADMINISTER ATIVAN 0.5 PO ONCE FOR ANXIETY.
[2019-06-15] MEDS ORDERED: LORAZEPAM 0.5 MG TABLET PO ONE (15:45)
[2019-06-15 16:00] VITALS: BP 140/65
[2019-06-15] MEDS ORDERED: DILTIAZEM HCL 30 MG TABLET PO SCH (17:00)
--- NOTE | 2019-06-15 17:51 | NUR ---
MS RN NOTES [facility] ARE BACK TO THE FACILITY TO TRANSFER THE PATIENT. REPORT GIVEN FOR THE SECOND TIME TO DEANN AND PATIENT IS GOING TO BE ON ROOM 3A. VITALS WNL TEMP 97.7 RR20 HR117 BP 115/59. NO STRESS OR SOB NOTED AT THIS TIME, PATIENT IS A/OX1-2 ON 4 L NASAL CANNULA SATURATING 99-100%. BELONGINGS RETURNED TO THE SISTER. SISTER AT BEDSIDE. NO PICTURE TAKEN DUE TO PT REFUSAL. PICC LINE PATENT AND FLUSHED WELL WITH NORMAL SALINE.
--- NOTE | 2019-06-15 18:08 | NUR ---
MS RN NOTES PATIENT BEING TRANSFERRED TO FACILITY AND DEANN THE RN CALLED AND NOTIFY US THAT THEY CAN NOT TAKE THE PATIENT BECAUSE SHE WAS SCHEDULED FOR DAILY DIALYSIS. INFORMED HER THAT PER OPERATOR MAINTAINER NOTES THE DIALYSIS IS SCHEDULED FOR [facility], ALSO CALLED [facility] AND INFORMED THAT THE FACILITY IS NOT ACCEPTING THE PATIENT. [facility] ARE HERE WITH PATIENT AND WAITING FOR [facility] TO TALK TO THE FACILITY`S DON.
--- NOTE | 2019-06-15 18:20 | NUR ---
DISCHARGE PENDING PER SNF DON NEED TO VERIFY THE HEMODIALYSIS DAYS,[facility] SHIP MATE AWARE,[facility] WILL CALL,NURSING SUP AWARE.
--- NOTE | 2019-06-15 18:27 | NUR ---
MS RN NOTES CALLED THE SISTER MORELIA AND LEFT THE VOICE MSG THAT [facility] IS TALKING TO FACILITY AND THEY WILL VERIFY THE DIALYSIS DAYS WITH DR HEAD THEN THEY CAN TRANSFER THE PATIENT.
--- NOTE | 2019-06-15 18:30 | NUR ---
EFE AUSTIN NOTIFIED ALSO.
--- NOTE | 2019-06-15 18:47 | NUR ---
PER SNF RETENTION MANAGER [facility] STEELE WILL NOT ACCEPT PATIENT,[facility] AND SCOTTIE GARCIA AND [facility] CAMPBELL NOTIFIED.
--- NOTE | 2019-06-15 19:03 | NUR ---
MS RN NOTES STACY FROM [facility] CALLED AND INFORMED THAT THE SISTER (SANDRA) IS IN THE FACILITY AND THEY EXPLAINED HER THAT THEY ARE IN CONTACTING [facility] [employer] FOR DIALYSIS CLARIFICATION. THEN THE SISTER WILL BE TRANSFERRED.
--- NOTE | 2019-06-15 19:21 | NUR ---
MS RN NOTES TRANSFER NO DONE, PT IS STILL IN ROOM 117 BED 1 , PT COMFORTABLE IN BED NO SOB OR DISTRESS NOTED AT THIS TIME. ALL NEEDS ATTENDED. MEDICATIONS ADMINISTRATED. BED AT THE LOWEST POSITION LOCKED, CALL LIGHT WITHIN REACH. ENDORSED TO BANQUET PILOT NURSE FOR DANNA.
--- NOTE | 2019-06-15 20:00 | NUR ---
RN NOTE RECEIVED PATIENT IN BED AWAKE A/O X 2. BREATHING NORMAL NO SOB NOTED.NO SIGNS OF RESPIRATORY DISTRESS NOTED. RIGHT FEMORAL PICC LINE TRIPLE LUMEN INTACT AND FLUSHING WELL,BREATHING NORMAL NO SOB NOTED. SAFETY MEASURES IN PLACE, BED IN LOW AND LOCKED POSITION. CALL LIGHT WITHIN REACH. WILL CONT TO MONITOR.
[2019-06-16] MEDS: METOCLOPRAMIDE HCL 10 MG/10 ML UDC PO SCH ×2 (05:12→11:53)
--- NOTE | 2019-06-16 07:08 | NUR ---
RN NOTES PATIENT RESTED WELL DURING NIGHT, NO S/S OF ACUTE DISTRESS NOTED. BREATHING NORMAL NO SOB NOTED. RESPIRATION EVEN NON LABORED. SKIN WARM AND DRY TO TOUCH. RIGHT FEMORAL PICC LINE TRIPLE LUMEN INTACT AND FLUSHING WELL. ALL DUE MEDICATIONS WERE GIVEN TOLERATED WELL. SAFETY MEASURES IN PLACE, BED IN LOW AND LOCKED POSITION. CALL LIGHT WITHIN REACH. WILL CONT TO MONITOR.
[2019-06-16 08:00] VITALS: BP 139/67
[2019-06-16] MEDS: VALACYCLOVIR HCL 500 MG TABLET PO SCH (09:41)
[2019-06-16] MEDS: PANTOPRAZOLE 40 MG VIAL IV SCH (09:41)
[2019-06-16] MEDS: HEPARIN SODIUM, PORCINE 5000 UNITS/1 ML VIAL SQ SCH (09:42)
[2019-06-16] MEDS: HYDROGEL DRESSING 90 GM TUBE TP SCH (09:43)
[2019-06-16] MEDS: MORPHINE SULFATE INJ 2 MG/ML DISP.SYRIN IV PRN ×2 (09:56→16:16)
--- NOTE | 2019-06-16 14:45 | NUR ---
Per Director at [facility], Pt was denied a bed at [facility].
--- NOTE | 2019-06-16 14:55 | NUR ---
Per JOSSY Grant, pt to go to different SNF today: [facility]. Ambulance to bean picker pt between [id number].
--- NOTE | 2019-06-16 15:00 | NUR ---
SBAR report given to Nurse Yamilet at [facility]. Pt to be picked up from [facility] via ambulance between [phone]. Nurse Yamilet at [facility] made aware.
[2019-06-16 16:00] VITALS: BP 169/78
--- NOTE | 2019-06-16 16:30 | NUR ---
1616: SBAR report given to NELLI Esteban. All discharge papers given to NELLI Esteban. Pt with facial grimacing and moaning. Pt medicated for pain before discharge. VS stable. No distress noted or reported. Pt's two nieces at bedside. 1646: Pt's pain reassessed. VS stable. Pt resting with eyes closed, easily arousable, pt denied any pain or discomfort at this time. Pt safety maintained during shift. Pt safely discharged via gurney in Ambulance.
== END 2019-06-16 11:45 | DRG 388 ==
LOC: ER 21:21 → MED 23:55 → ICU 05-30 08:49 → TELE-TD 06-06 10:29 → TELE1 06-09 11:50 → MEDSG1 06-12 11:46
PROVIDERS: ADMIT Student in an Organized Health Care Education/Training Program; ATTEND Nurse Practitioner Acute Care
PROC: 5A1D70Z Performance of Urinary Filtration, Intermittent, Less than 6 Hours Per Day (ICD-10-PCS; 2019-05-28)
PROC: 5A1955Z Respiratory Ventilation, Greater than 96 Consecutive Hours (ICD-10-PCS; principal; 2019-05-30)
PROC: 0BH17EZ Insertion of Endotracheal Airway into Trachea, Via Natural or Artificial Opening (ICD-10-PCS; 2019-05-30)
PROC: 5A12012 Performance of Cardiac Output, Single, Manual (ICD-10-PCS; 2019-05-30)
PROC: 06H033Z Insertion of Infusion Device into Inferior Vena Cava, Percutaneous Approach (ICD-10-PCS; 2019-05-30)
PROC: B549ZZA Ultrasonography of Inferior Vena Cava, Guidance (ICD-10-PCS; 2019-05-30)
PROC: 30233N1 Transfusion of Nonautologous Red Blood Cells into Peripheral Vein, Percutaneous Approach (ICD-10-PCS; 2019-05-31)
DX: K56.609 Unspecified intestinal obstruction, unspecified as to partial versus complete obstruction (principal); N18.6 End stage renal disease; E43 Unspecified severe protein-calorie malnutrition; I21.A1 Myocardial infarction type 2; I46.9 Cardiac arrest, cause unspecified; G92 Toxic encephalopathy; J96.01 Acute respiratory failure with hypoxia; J96.02 Acute respiratory failure with hypercapnia; J69.0 Pneumonitis due to inhalation of food and vomit; J15.6 Pneumonia due to other Gram-negative bacteria; I13.11 Hypertensive heart and chronic kidney disease without heart failure, with stage 5 chronic kidney disease, or end stage renal disease; J90 Pleural effusion, not elsewhere classified; D68.69 Other thrombophilia; J98.11 Atelectasis; R18.8 Other ascites; E87.1 Hypo-osmolality and hyponatremia; I82.623 Acute embolism and thrombosis of deep veins of upper extremity, bilateral; D63.1 Anemia in chronic kidney disease; E03.9 Hypothyroidism, unspecified; E11.22 Type 2 diabetes mellitus with diabetic chronic kidney disease; K44.9 Diaphragmatic hernia without obstruction or gangrene; Z88.0 Allergy status to penicillin; Z86.73 Personal history of transient ischemic attack (TIA), and cerebral infarction without residual deficits; Z99.2 Dependence on renal dialysis; M32.9 Systemic lupus erythematosus, unspecified; E88.09 Other disorders of plasma-protein metabolism, not elsewhere classified; K59.00 Constipation, unspecified; Z68.26 Body mass index [BMI] 26.0-26.9, adult; Z22.322 Carrier or suspected carrier of Methicillin resistant Staphylococcus aureus; I70.0 Atherosclerosis of aorta; F32.9 Major depressive disorder, single episode, unspecified; M62.50 Muscle wasting and atrophy, not elsewhere classified, unspecified site; S31.000A Unspecified open wound of lower back and pelvis without penetration into retroperitoneum, initial encounter; X58.XXXA Exposure to other specified factors, initial encounter; Y93.9 Activity, unspecified; Y92.129 Unspecified place in nursing home as the place of occurrence of the external cause; Z86.19 Personal history of other infectious and parasitic diseases; M43.17 Spondylolisthesis, lumbosacral region
CPT/HCPCS: 31720; 36415; 36569; 36600; 70450-TC; 71045-TC; 73030-TC; 74018; 74250-TC; 80048-TC; 80053-TC; 80061-TC; 80076-TC; 82272-TC; 82378; 82728-TC; 82803-TC; 82962-TC; 83540-TC; 83605-TC; 83690-TC; 83735-TC; 84100-TC; 84439-TC; 84443-TC; 84484-TC; 85025-TC; 85027-TC; 85730-TC; 86300; 86301; 86304; 86704; 86706; 86850-TC; 86921-TC; 87040-TC; 87070-TC; 87081-TC; 87340; 90935-TC; 92526; 92611-TC; 93970-TC; 94002-TC; 94003-TC; 94760-TC; 94799-TC; 95819-TC; 97110-TC; 97116-TC; 97530-TC; 99082-TC; A4216; A6248; A6403; C1750; C1751; C1769; C9113; G0378; J0360; J0885; J1200; J1642; J1644; J2020; J2060; J2185; J2270; J2405; J2543; J2765; J3490; J7040; J7042; J7050; J7060; J8597; P9016-BL; P9047; Q9963